=== PATIENT | male | born 1980 | race Caucasian/White ===

== ENCOUNTER 2017-10-17 14:06 | Emergency (ER) | payer SELFPAY ==
[2017-10-17 14:07] VITALS: BP 122/68; PULSE 62; RESP 18; TEMP 37; O2SAT 100; BMI 20.7
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
[2017-10-17] MEDS: Acetaminophen 500 MG Tablet 1000 MG PO (16:07)
[2017-10-17 16:08] VITALS: PULSE 72; RESP 16; O2SAT 98
== END 2017-10-17 16:09 | disposition home or self-care (01) ==
PROVIDERS: Emergency Provider Emergency Medicine
DX: S29.011A Strain of muscle and tendon of front wall of thorax, initial encounter (principal); S20.211A Contusion of right front wall of thorax, initial encounter; X58.XXXA Exposure to other specified factors, initial encounter; Y93.89 Activity, other specified; Y92.9 Unspecified place or not applicable; Z72.0 Tobacco use
CPT/HCPCS: 71046; 99283

== ENCOUNTER 2018-12-13 12:53 | Emergency (ER) | payer SELFPAY ==
[2018-12-13 12:56] VITALS: BP 169/107; PULSE 95; RESP 16; TEMP 36.8; O2SAT 97; BMI 19.1
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
[2018-12-13 13:37] LABS: Absolute Lymphocyte Count 3.78 X10^3/uL (0.83-4.51); Absolute Neutrophil Count 16.3 X10^3/uL (2.0-7.7); Basophil# 0.07 X10^3/uL; Basophil% 0.3 % (0-1); Eosinophil# 0.07 X10^3/uL; Eosinophils% 0.3 % (0-5); Hematocrit 42.6 % (40-54); Hemoglobin 14.1 g/dL (13.0-16.5); Lymphocyte # 3.78 X10^3/ul (4.0); Mean Corp Hgb Conc 33.1 g/dL (32-36); Mean Corpuscular Hgb 30.9 pg (27.0-32.0); Mean Corpuscular Volume 93.2 fL (80-94); Mean Platelet Vol. 10.2 fl (6.2-12.0); Monocyte# 1.85 X10^3/uL; Monocyte% 8.3 % (0-10); NRBC Flagged by Analyzer 0 % (0-5); Neutrophil # 16.29 X10^3/uL (2.7-7.7); Neutrophil % 73.6 % (47-70); POSITIVE DIFFERENTIAL YES; Platelet Count 314 K/mm3 (150-450); RBC Distribution Width CV 14.5 % (11.6-14.6); RBC Distribution Width SD 49.3 fl (35.1-43.9); Red Blood Count 4.57 M/mm3 (4.6-6.2); White Blood Count 22.2 K/mm3 (4.4-11.0)
[2018-12-13 13:39] LABS: Differential Indicated SCAN CRITERIA MET
[2018-12-13 13:49] LABS: Anion Gap 13 (5-15); BUN 14 mg/dL (7-18); BUN/Creat Ratio 11.4 RATIO (10-20); Calcium,Total 9.4 mg/dL (8.5-10.1); Chloride 107 mmol/L (98-107); Creatinine, Serum 1.23 mg/dL (0.70-1.30); EST Glomerular Filtration Rate 70 mL/min (>60); Est Glom Filt Rate - Afr Amer 84 mL/min (>60); Estimated Creatinine Clearance 60.08 ml/min; Glucose 117 mg/dL (74-106); Potassium 3.4 mmol/L (3.5-5.1); Sodium Level 140 mmol/L (136-145)
[2018-12-13 13:56] VITALS: BP 123/82; PULSE 118; RESP 16; O2SAT 95
[2018-12-13 14:11] LABS: Alcohol, Blood (Medical)-Serum < 3.0 mg/dL
--- NOTE | 2018-12-13 14:17 | CM.ED ---
SOCIAL WORK DISCUSSED CASE WITH DR. STEVENS. PATIENT IS SELF PAY. CRISIS TO EVALUATE ONCE PATIENT IS MEDICALLY CLEARED. Nicole SAMUEL, MANAGER PRODUCT DESIGN, LOAN ASSOCIATE.
[2018-12-13 15:03] VITALS: BP 142/75; PULSE 102; RESP 16; O2SAT 97
--- NOTE | 2018-12-13 15:10 | ED.RN ---
FRIEND IN TRIAGE LEFT CONTACT INFORMATION. LOTUS SCHULTZ [phone] JER HEDRICK [phone] ANTONINA MILLARD [phone]
--- NOTE | 2018-12-13 16:04 | ED.RN ---
MARIAH WITH CRISIS AWARE PT NEEDS TO BE SEEN
--- NOTE | 2018-12-13 16:38 | ED.RN ---
CLOTHONG NOT REMOVED AT THIS TIME.
[2018-12-13 16:52] LABS: Amphetamine Urine VISTA POSITIVE (<1000 ng/mL); Barbiturate Urine VISTA NEGATIVE (< 200 ng/mL); Benzodiazepine Urine VISTA NEGATIVE (< 200 ng/mL); Cocaine Urine VISTA NEGATIVE (< 300 ng/mL); Ecstacy Urine VISTA NEGATIVE (< 500 ng/mL); Methadone Urine VISTA NEGATIVE (< 300 ng/mL); PCP Urine VISTA NEGATIVE (< 25 ng/mL); THC Urine VISTA POSITIVE (< 50 ng/mL); Vista UDS pH Range 6
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
[2018-12-13 17:37] VITALS: BP 120/70; PULSE 79; RESP 16; O2SAT 98
[2018-12-13 19:21] VITALS: BP 113/74; PULSE 70; RESP 16; O2SAT 99
--- NOTE | 2018-12-13 19:46 | EKG12_ITS ---
Test Reason : MHC Blood Pressure : / mmHG Vent. Rate : 059 BPM Atrial Rate : 059 BPM P-R Int : 140 ms QRS Dur : 090 ms QT Int : 368 ms P-R-T Axes : 062 065 059 degrees QTc Int : 364 ms Sinus bradycardia Otherwise normal ECG Confirmed by MARC BARRIENTOS ([id number]), subeditor ILIA HEARD ([id number]) on 12/19/2018 8:48:03 AM Referred By: Confirmed By:MARC BARRIENTOS
[2018-12-13 20:06] LABS: AST(SGOT) 21 U/L (15-37); Alanine Aminotransfer ALT/SGPT 25 U/L (16-61); Albumin, Serum 4.1 g/dL (3.2-5.0); Alkaline Phosphatase 69 U/L (45-117); Bilirubin, Direct 0.15 mg/dL (0.00-0.30); Globulin 3.7 g/dL (2.2-4.2); Protein, Total 7.8 g/dL (6.4-8.2)
[2018-12-13 20:33] LABS: Bacteria 0 SEEN /hpf (None Seen); Mucous, Urine 0 SEEN /hpf (<or=2+); Red Blood Cells-Urine 0 SEEN /hpf (0-5); Squamous Epithelial Cells - UA 0 SEEN /hpf (0-5); White Blood Cells 0 SEEN /hpf (0-5)
[2018-12-13 20:41] LABS: Color, Urine Yellow (Yellow); Glucose, Dipstick Normal (Normal); Ketone-Dipstick 50 mg/dl (Negative); Leukocyte Esterase-Dipstick Negative /ul (Negative); Nitrite-Dipstick Negative (Negative); Occult Blood-Urine Negative /ul (Negative); Protein-Dipstick 30 mg/dl (Negative); Urine Bilirubin Dipstick Negative (Negative); Urine Clarity Cloudy (Clear); Urine Urobilinogen 1 mg/dl (Normal); Urine pH 6.5 (5.0 - 8.0)
[2018-12-13 20:48] LABS: Amorphous Sediment 3+
[2018-12-13 21:00] VITALS: BP 113/74; PULSE 68; RESP 16; O2SAT 99
--- NOTE | 2018-12-13 21:02 | ED.RN ---
FAXED REQUESTED LAB RESULTS, AND EKG TO [facility]
[2018-12-13 22:31] LABS: CPK Total, Creatine Kinase 238 U/L (39-308)
[2018-12-13 23:46] LABS: CPK Total, Creatine Kinase 1166 U/L (39-308)
--- NOTE | 2018-12-14 00:13 | ED.RN ---
AT 0000 THIS RN CAME OUT OF A ROOM AFTER CHECKING IN A PATIENT AND THIS PATIENT WAS NOT IN HIS ROOM. RN CHECKED BATHROOMS AND ALERTED SECURITY. SECURITY FOUND PT ON VIDEO CAMERA LEAVING ROOM AT 2352. EVENT DECORATOR AWARE. POLICE WILL BE NOTIFIED.
--- NOTE | 2018-12-14 00:17 | ED.RN ---
SPOKE WITH [facility] AND WILL FURTHER NOTIFY POLICE.
[2018-12-14 00:59] VITALS: BP 123/79; PULSE 78; RESP 16; O2SAT 99
[2018-12-14] MEDS: 0.9% Normal Saline 1,000 ML 1000 ML IV ×2 (01:07→02:10)
--- NOTE | 2018-12-14 01:09 | ED.RN ---
PT ESCORTED BACK TO ED BY THE [facility] POLICE. PT PICKED UP AT [facility]AL [facility]. VS OBTAINED, AND WITHIN NORMAL LIMITS PT UNDRESSED AND PLACED INTO A GOWN. IV INITIATED PER DR. HANNA. PT COOPERATIVE AT THIS TIME. PT EDUCATED THAT HE IS NOT ABLE TO LEAVE THE DEPT AND HE MUST STAY IN HIS ROOM.
[2018-12-14 03:02] VITALS: BP 110/78; PULSE 65; RESP 18; O2SAT 100
[2018-12-14 04:39] LABS: CPK Total, Creatine Kinase 1199 U/L (39-308)
--- NOTE | 2018-12-14 04:45 | HP.PCM_ITS ---
History of Present Illness Date of Admission: 12/14/18 Chief Complaint: Accidental OD, Hallucinations and Delusions The patient is a 38 year old M [] Past Medical History Allergies aspirin Adverse Reaction (Verified 10/17/17 14:08) Upset Stomach ibuprofen Adverse Reaction (Verified 10/17/17 14:08) Upset Stomach naproxen [From Naprosyn] Adverse Reaction (Verified 10/17/17 14:08) Upset Stomach Home Medications: Ambulatory Orders Medication Instructions Recorded Acetaminophen [Pain Relief 8Hr] 650 mg PO TID PRN #20 tablet.er 10/17/17 Smoking Status: Current every day smoker - Physical Exam Vitals/I&O's: Vital Signs Temp Pulse Resp BP Pulse Ox 98.3 F 65 18 110/78 100 12/13/18 12:56 12/14/18 03:02 12/14/18 03:02 12/14/18 03:02 12/14/18 03:02 Oxygen Delivery Method Room Air Weight: 115 lb Body Mass Index (BMI) 19.1 Intake and Output for Last 24 Hours 12/12/18 12/13/18 12/14/18 23:59 23:59 23:59 Intake Total 1999 Balance 1999 Laboratory Results 12/13/18 13:28: WBC 22.2 H, RBC 4.57 L, Hgb 14.1, Hct 42.6, MCV 93.2, MCH 30.9, MCHC 33.1, RDW Std Deviation 49.3 H, RDW Coeff of Codey 14.5, Plt Count 314, MPV 10.2, Immature Gran % (Auto) 0.500, Neut % (Auto) 73.6 H, Lymph % (Auto) 17.0 L, [place] % (Auto) 8.3, Eos % (Auto) 0.3, Baso % (Auto) 0.3, Absolute Neuts (auto) 16.3 H, Absolute Lymphs (auto) 3.78, Nucleated RBC % 0, Differential Comment COMMENT, Diff Path Review June12/13/18 13:28: Sodium 140, Potassium 3.4 L, Chloride 107, Carbon Dioxide 20.0 L , Anion Gap 13, BUN 14, Creatinine 1.23, Estim Creat Clear Calc 60.08, Est GFR (MDRD) Af Amer 84, Est GFR (MDRD) Non-Af 70, BUN/Creatinine Ratio 11.4, Glucose 117 H, Calcium 9.4 12/13/18 13:28: Ethyl Alcohol < 3.0 12/13/18 13:28: Total Bilirubin 0.60, Direct Bilirubin 0.15, AST 21, ALT 25, Alkaline Phosphatase 69, Total Protein 7.8, Albumin 4.1, Globulin 3.7 12/13/18 13:28: Total Creatine Kinase 238 12/13/18 15:35: Urine Opiates Screen NEGATIVE, Urine Methadone Screen NEGATIVE, Ur Barbiturates Screen NEGATIVE, Ur Phencyclidine Scrn NEGATIVE, Ur Amphetamines Screen POSITIVE H, U Methamphetamin-MDMA NEGATIVE, U Benzodiazepines Scrn NEGATIVE, Urine Cocaine Screen NEGATIVE, U Cannabinoids Screen POSITIVE H, Ur Drug Screen Comment 12/13/18 15:35: Urine Color Yellow, Urine Clarity Cloudy, Urine pH 6.5, Ur Specific [place] 1.020, Urine Protein 30 H, Urine Glucose (UA) Normal, Urine Ketones 50 H, Urine Occult Blood Negative, Urine Nitrite Negative, Urine Bilirubin Negative, Urine Urobilinogen 1 H, Ur Leukocyte Esterase Negative, Urine RBC 0 SEEN, Urine WBC 0 SEEN, Ur Squamous Epith Cells 0 SEEN, Amorphous Sediment 3+, Urine Bacteria 0 SEEN, Urine Mucus 0 SEEN 12/13/18 23:06: Total Creatine Kinase 1166 H 12/14/18 03:35: Total Creatine Kinase 1199 H Current Medications Sodium Chloride () 1,000 mls @ 1,000 mls/hr IV .Q1H MAGGIE Stop: 12/14/18 06:44
--- NOTE | 2018-12-14 05:08 | ED.RN ---
CALLED CRISIS AT THE REQUEST OF DR MCKEE
--- NOTE | 2018-12-14 05:16 | ED.DCSUM_ITS ---
- ER Visit Summary Date of Service: 12/14/18 Chief Complaint: [] History of Present Illness: The patient is a 38 M [] Physical Examination: [] Test Results: [] Emergency Department Course and Treatment: [] Treatment Plan: [] Disposition: [] Impression: [] This note was generated with [employer] software. It may contain incorrect words, spelling, and punctuation that were not noted in review of the chart prior to signing ED Disposition - Plan for ED Patient: Disposition: Home or Assisted Living Diagnosis: Drug-induced psychotic disorder with delusions Instructions: Drug Abuse Referrals: Counseling,Center [GROUP OF PHYSICIANS] -
[2018-12-14 05:21] VITALS: BP 120/78; PULSE 80; RESP 18; O2SAT 100
--- NOTE | 2018-12-14 05:22 | ED.RN ---
DR. MCKEE TO BEDSIDE FOR REEVALUATION. PT CONTINUES TO DENY SI/HI. TALKED TO CRISIS. PT TO BE DISCHARGED HOME.
[2018-12-14 11:14] LABS: Pathologist Review Reviewed
== END 2018-12-14 05:28 | disposition home or self-care (01) ==
PROVIDERS: Emergency Medicine; Emergency Provider Emergency Medicine
DX: F23 Brief psychotic disorder (principal); F12.90 Cannabis use, unspecified, uncomplicated; Z72.0 Tobacco use
CPT/HCPCS: 36415; 80048; 80076; 80307; 80320; 81001; 82550; 85025; 93005; 96360; 96361; 99285; J7030; P9612; A4216; G0480; J3486

== ENCOUNTER 2019-05-09 22:24 | Emergency (ER) | payer SELFPAY ==
[2019-05-09 22:25] VITALS: BP 137/87; PULSE 83; RESP 16; TEMP 37.4; O2SAT 98; BMI 21.2
--- NOTE | 2019-05-09 22:32 | ED.VIS.GEN ---
History of Present Illness Chief Complaint: Abscess Informant: Patient Onset: Days Context: Sudden Onset Timing: Continuous Quality: Painful red area Location: Left axilla Current Severity: Mild Maximum Severity: Moderate Worsened by: Movement of left upper extremity and palpation Relieved by: Nothing Associated Symptoms: No associated symptoms Narrative: Patient is a 39-year-old male with no similar past medical history presents with a left axillary abscess. He denies fever, chills night sweats. [place] history medic fever, heart murmur, SBE, IV drug use or being immune suppressed. He states he had prior abscess. It has been sometime since last abscess. He denies paresthesia, anesthesia motors of the left upper extremity. He denies cardiac or respiratory symptoms. Prior similar symptoms: Yes Recent Illness/Hospitalization: No - Past Medical History (1) No significant past medical history Status: Acute Past Medical History - Allergies and Home Meds Allergies/Adverse Reactions: Allergies aspirin Adverse Reaction (Verified 10/17/17 14:08) Upset Stomach ibuprofen Adverse Reaction (Verified 10/17/17 14:08) Upset Stomach naproxen [From Naprosyn] Adverse Reaction (Verified 10/17/17 14:08) Upset Stomach Primary Care Physician: Care Physician,No Primary [Primary Care Provider] - Prior records reviewed: Yes - Prior abscess Surgical History: noncontributory Lives: Alone Smoking Status: Current every day smoker Alcohol: Rare Drugs: None Review of Systems General: Denies: Chills, Fever, Malaise, Subjective, Sweats, Weight loss, - Cardiovascular: Denies: Chest pain Respiratory: Denies: Dyspnea Gastrointestinal: Denies: Nausea, Vomiting Musculoskeletal: Reports: Swelling, Extremity Pain. Denies: Myalgias, Arthralgias, Neck pain, Back pain Skin: Reports: Abscess. Denies: Rash, Abrasions, Wounds Neurological: Denies: Weakness, Parasthesia, Numbness Hematologic: Denies: Easy bruising, Easy bleeding Allergy: Denies: Uticaria, Swelling of the mouth Physical Exam Vital Signs/Narrative: Vital Signs Temp Pulse Resp BP Pulse Ox 05/09/19 22:25 99.4 F H 83 16 137/87 H 98 Inital Vital Signs reviewed: Yes General: Well nourished, Well developed, No Acute Distress Head: Normocephalic, Atraumatic Eyes: Perrl, EOMI. Negative for: Pale conjunctiva, Scleral icterus ENT: Moist mucous membranes, No rhinorrhea Neck: Supple, Nontender, No lymphadenopathy, No JVD Cardiovascular: Regular rate, Regular rhythm, No murmurs, Normal S1, Normal S2 Respiratory: No distress, CTA bilaterally, Chest nontender Extremities: No edema, Tenderness - Is over left axillary abscess. Skin: Normal color, No rash, No Trauma. Negative for: Cyanosis, Diaphoresis, Jaundice Neurological: Alert, Oriented x3, Cranial nerves II-XII grossly intact, Normal Strength, Normal Sensation Psychological: Normal affect, Normal Mood Diagnostic/Tx/Re-eval - Medical Decision Making A subcutaneous left axillary abscess. The area is red, slightly warm and there is fluctuance. There is no axillary lymphadenopathy. Patient was informed treatment is incision and drainage. He gave verbal consent. Written consent was obtained as well. Procedures Procedure(s): Patient consented for incision and drainage of subcutaneous left axillary abscess. Patient was explained risk benefits. Patient was prepped draped sterile manner. The area anesthetized with 1% lidocaine. A 2 cm incision was made using a 10 blade. Blunt dissection undertaken. There was minimal purulent drainage. The redness has resolved. Since this is a simple subcutaneous abscess with no evidence cellulitis antibiotics were not prescribed. ED Disposition - Plan for ED Patient: Disposition: Home or Assisted Living Diagnosis: Subcutaneous abscess Instructions: ABSCESS, Incision and Drainage Referrals: Care Physician,No Primary [Primary Care Provider] - Mayda Smith [NON-STAFF] - 2 Days for wound check
== END 2019-05-09 22:57 | disposition home or self-care (01) ==
LOC: ED 22:50
PROVIDERS: Emergency Provider Emergency Medicine
DX: L02.412 Cutaneous abscess of left axilla (principal); F17.200 Nicotine dependence, unspecified, uncomplicated
CPT/HCPCS: 10060; 99283

== ENCOUNTER 2021-08-30 03:34 | Emergency (ER) | payer MEDICAID, SELFPAY ==
[2021-08-30 03:34] VITALS: BP 151/83; PULSE 67; RESP 18; TEMP 35.8; O2SAT 99
--- NOTE | 2021-08-30 03:41 | EDS_ITS ---
HPI History of Present Illness Chief Complaint: Dental Detail of Chief Complaint: Dental pain x1 week Informant: patient Narrative Narrative: Patient presents with dental pain. Patient states that a week ago his tooth broke and now is worn down to the gumline. Initially did not hurt very much but started hurting more over the last 24 hours. He denies fever. He has not contacted a dentist and states he just got his medical card. Prior similar symptoms: No PFSH PFSH Medical History no medical history Home Medications amoxicillin 500 mg tablet 500 mg PO TID #30 tabs 08/30/21 [Rx Last Taken Unknown] hydrocodone-acetaminophen 5-325mg 5mg-325mg 1 tab PO Q4H PRN PRN Pain 2 days #10 TABLETS 08/30/21 [Rx Last Taken Unknown] Allergy/AdvReac Type Severity Reaction Status Date / Time aspirin AdvReac Upset Verified 08/30/21 03:37 Stomach ibuprofen AdvReac Upset Verified 08/30/21 03:37 Stomach naproxen [From Naprosyn] AdvReac Upset Verified 08/30/21 03:37 Stomach Social History Smoking Status: Current every day smoker tobacco type: cigarettes ROS ROS ED Review of Systems ROS Unobtainable: other Constitutional Constitutional ED: Reports lethargy; Denies chills, fever(s), sweats or weight loss Eyes Eyes: Denies blurry vision, change in vision or diplopia ENT ENT ED: Reports other Details: Dental pain ; Denies rhinorrhea or sore throat Cardiovascular Cardiovascular: Denies chest pain, orthopnea or racing heartbeat Respiratory/Chest Respiratory/Chest: Reports dyspnea and dyspnea on exertion; Denies cough, orthopnea or sputum Gastrointestinal Gastrointestinal: Denies abdominal pain, diarrhea, nausea or vomiting Genitourinary Genitourinary ED: Denies dysuria, hematuria or urinary frequency Musculoskeletal Musculoskeletal: Denies arthralgias, back pain, myalgias or neck pain Integumentary Denies abscess, Abrasions or rash Neurologic Neurologic: Denies headache(s) or weakness Psychiatric Psychiatric: Denies anxiety, depression or suicidal thoughts Endocrine Endocrinology: Denies polydipsia, polyphagia or polyuria Hematologic/Lymphatic Hematologic/Lymphatic: Denies easy bleeding, easy bruising or lymphadenopathy Allergic/Immunologic Allergic/Immunologic ED: Denies mouth swelling, tongue swelling or urticaria EXAM Physical Exam Const Vital Signs: 08/30/21 03:34 Temperature 96.4 F L Temperature Source Temporal Pulse Rate 67 Respiratory Rate 18 Blood Pressure 151/83 H Blood Pressure Mean 105 Pulse Ox 99 Oxygen Delivery Method Room Air Positive well nourished and well developed General Appearance ED: well developed and NAD HEENT Reports TM's clear and moist mucous membranes HEENT Narrative: Patient has very poor dentition. He does have a broken and carried tooth #20 that is tender to palpation. The tooth is worn down to the gumline. No gingival erythema or abscess noted. No facial erythema or cellulitis. normocephalic and atraumatic; Negative for trauma or tenderness Tympanic Membrane ED: Yes TM's clear Eyes PERRL and EOMs intact bilaterally General Eye ED: Negative for pale conjunctiva or scleral icterus Neck no lymphadenopathy, supple and no JVD General: Negative for tenderness Chest Wall inspection of chest normal and palpation of chest normal Chest: Negative for tenderness Resp normal respiratory effort and clear to auscultation bilaterally Effort and Inspection: Negative for respiratory distress or pain with movement Auscultation: Negative for rhonchi, wheezes or diminished lung sounds Cardio regular rate, regular rhythm, S1 normal heart sound, S2 normal heart sound and no murmurs Peripheral Pulses: pulses 2+ throughout GI normal to inspection, nondistended, normoactive bowel sounds, soft to palpation, non-tender, non-distended and no masses Back/Spine no CVA tenderness and no thoracic nor lumbar tenderness Extremity normal to inspection General Extremety ED: Negative for edema General Extremity: Negative for edema Neuro oriented x3, CN's II-XII intact bilaterally, no sensory deficits noted and gait normal Sensorium / Orientation: awake, alert, oriented to person, oriented to place and oriented to time Motor Exam: strength 5/5 throughout and strength abnormal Psych mental status grossly normal Skin no rashes or lesions noted and no wounds MDM MDM MDM Narrative Medical decision making narrative: Patient was started on amoxicillin and given Henrietta. He is given a prescription for amoxicillin and Henrietta given referral to dentist for follow-up. Discharge Plan Triage Chief Complaint: Dental ED Provider: Kathi Calixto Dx/Rx/DC Orders Clinical Impression: Pain, dental Instructions: ED Dental Pain, ED Dental Cavity Prescriptions: New hydrocodone-acetaminophen [hydrocodone-acetaminophen] 5-325 mg tablet 1 tab PO Q4H PRN PRN (Reason: Pain) 2 Days Qty: 10 0RF amoxicillin 500 mg tablet 500 mg PO TID Qty: 30 0RF Primary Care Provider: Care Physician,No Primary Referrals: Care Physician,No Primary [Primary Care Provider] - Activity Restrictions/Additional Instructions: See a dentist Disposition Disposition: Home, Self Care
[2021-08-30] MEDS: AMOXICILLIN 500 MG CAPSULE PO (03:51)
[2021-08-30] MEDS: HYDROcodone Bitartrate/Apap 5/325 Tablet PO (03:52)
== END 2021-08-30 04:02 | disposition home or self-care (01) ==
PROVIDERS: Emergency Provider Emergency Medicine; Visit Provider Emergency Medicine
DX: K08.89 Other specified disorders of teeth and supporting structures (principal); F17.210 Nicotine dependence, cigarettes, uncomplicated
CPT/HCPCS: 99283

== ENCOUNTER 2021-10-17 06:11 | Emergency (ER) | payer MEDICAID, SELFPAY ==
[2021-10-17 06:13] VITALS: BP 138/80; PULSE 72; RESP 18; TEMP 36.1; O2SAT 98; BMI 20.9
--- NOTE | 2021-10-17 06:31 | ED.VIS.DENTA ---
HPI History of Present Illness Chief Complaint: Dental Informant: patient Onset/Context/Timing Onset: Days (2) Context: Gradual Onset Timing: Continuous Quality: Throbbing, aching, stabbing Location: Left lower molars Worsened by: Nothing Relieved by: - (Nothing) Associated Symptoms Assocated Symptom - Dental: jaw swelling; Negative for fever, face swelling, cold sensitivity or hot sensitivity Narrative Narrative: Patient presents with left lower dental pain that has been getting worse over the past 2 days. Patient describes the pain as throbbing and aching. Patient states nothing makes it worse and nothing makes it better. Patient admits to some swelling around the tooth. Patient denies any fevers or chills. Patient denies any hot or cold sensitivity. Patient does not have a dentist. Patient denies any difficulty breathing or difficulty swallowing. PFSH PFSH Medical History no medical history no medical history Home Medications penicillin V potassium 500 mg tablet 500 mg PO 4X/DAY #40 tabs 10/17/21 [Rx Last Taken Unknown] Allergy/AdvReac Type Severity Reaction Status Date / Time aspirin AdvReac Upset Verified 10/17/21 06:12 Stomach ibuprofen AdvReac Upset Verified 10/17/21 06:12 Stomach naproxen [From Naprosyn] AdvReac Upset Verified 10/17/21 06:12 Stomach Surgical History no surgical history no surgical history Social History Smoking Status: Current every day smoker tobacco type: cigarettes ROS ROS ED Constitutional Constitutional ED: Denies chills or fever(s) Eyes Eyes: Denies blurry vision or change in vision ENT ENT ED: Reports ear pain left; Denies rhinorrhea or sore throat Cardiovascular Cardiovascular: Denies chest pain or palpitations Respiratory/Chest Respiratory/Chest: Denies cough or dyspnea Gastrointestinal Gastrointestinal: Denies nausea or vomiting Genitourinary Genitourinary ED: Denies dysuria or hematuria Musculoskeletal Musculoskeletal: Denies back pain or neck pain Integumentary Denies abscess or rash Neurologic Neurologic: Reports headache(s); Denies weakness Allergic/Immunologic Allergic/Immunologic ED: Denies mouth swelling or urticaria EXAM Physical Exam Const Vital Signs: 10/17/21 06:13 Temperature 97 F L Temperature Source Temporal Pulse Rate 72 Respiratory Rate 18 Blood Pressure 138/80 H Blood Pressure Mean 99 Pulse Ox 98 Oxygen Delivery Method Room Air Positive well nourished and well developed General Appearance ED: well developed and NAD HEENT HEENT Narrative: There are multiple dental caries. There is a large dental carry over the left lower first molar. There is some gingival edema around this tooth. There is no fluctuance. There is no sublingual edema or induration. There is no evidence of Alfredo's angina. Oral mucosa is pink and moist. Oropharynx is clear. Airway is patent. Mouth ED: Yes oral and palatal mucosa normal, Yes lips normal and Yes tongue normal Mouth: oral and palatal mucosa normal, lips normal and tongue normal Teeth and Gingiva: caries Throat: posterior oropharynx normal Neck supple and no JVD General: normal visual inspection; Negative for anterior neck swelling, tenderness or submandibular swelling Resp clear to auscultation bilaterally Cardio regular rate and regular rhythm Neuro oriented x3, CN's II-XII intact bilaterally, moves all extremities, no focal motor deficits and no sensory deficits noted Sensorium / Orientation: alert Motor Exam: strength 5/5 throughout Psych mental status grossly normal Skin no rashes or lesions noted MDM MDM MDM Narrative Medical decision making narrative: Patient was given a dose of Pen-Vee K here. Patient was given a prescription for Pen-Vee K. Patient was given a dental referral list. Patient was instructed to follow-up with a dentist in 7 to 10 days. Patient was instructed to take Tylenol or ibuprofen as needed for pain. Patient understood and was agreeable with the plan. All questions were answered. Discharge Plan Triage Chief Complaint: Dental ED Provider: Dima Ray Dx/Rx/DC Orders Clinical Impression: Infected dental caries Instructions: ED Dental Pain, ED Dental Cavity Prescriptions: New penicillin V potassium 500 mg tablet 500 mg PO 4X/DAY Qty: 40 0RF Primary Care Provider: Care Physician,No Primary Referrals: Mayda Smith [Non-Staff] - 5-7 Days Care Physician,No Primary [Primary Care Provider] - Disposition Disposition: Home, Self Care
[2021-10-17] MEDS: Penicillin Vk 250 MG Tablet 500 MG PO (06:42)
== END 2021-10-17 06:44 | disposition home or self-care (01) ==
PROVIDERS: Emergency Provider Emergency Medicine; Visit Provider Emergency Medicine
DX: K02.9 Dental caries, unspecified (principal); F17.210 Nicotine dependence, cigarettes, uncomplicated
CPT/HCPCS: 99283

== ENCOUNTER 2022-08-21 17:56 | Emergency (ER) | payer MEDICAID, SELFPAY ==
[2022-08-21 17:57] VITALS: BP 134/74; PULSE 74; RESP 18; TEMP 36.2; O2SAT 98; BMI 19.1
--- NOTE | 2022-08-21 18:06 | ED.VIS.DENTA ---
HPI History of Present Illness Chief Complaint: Dental Informant: patient Onset/Context/Timing Onset: Weeks Context: Gradual Onset Current Severity: Moderate Maximum Severity: Moderate Associated Symptoms Assocated Symptom - Dental: face swelling Narrative Narrative: Patient presents with left-sided facial swelling. He states he first noted symptoms about 3 weeks ago. He thought he might have a an ingrown hair or an abscess. He was trying to squeeze the area but it only made it worse. PFSH PFSH Medical History no medical history no medical history Home Medications penicillin V potassium 500 mg tablet 500 mg PO 4X/DAY #40 tabs 10/17/21 [Rx Last Taken Unknown] penicillin V potassium 250 mg tablet 500 mg (2 x 250 mg) PO 4X/DAY #40 tabs 08/21/22 [Rx Last Taken Unknown] Allergy/AdvReac Type Severity Reaction Status Date / Time aspirin AdvReac Upset Verified 10/17/21 06:12 Stomach ibuprofen AdvReac Upset Verified 10/17/21 06:12 Stomach naproxen [From Naprosyn] AdvReac Upset Verified 10/17/21 06:12 Stomach Surgical History no surgical history Social History Smoking Status: Current every day smoker tobacco type: cigarettes ROS ROS ED Constitutional Constitutional ED: Denies chills or fever(s) Eyes Eyes: Denies discharge from eye(s) ENT ENT ED: Denies discharge from eye(s), rhinorrhea or sore throat Cardiovascular Cardiovascular: Denies chest pain Respiratory/Chest Respiratory/Chest: Denies cough or dyspnea Gastrointestinal Gastrointestinal: Denies abdominal pain, nausea or vomiting Musculoskeletal Musculoskeletal: Denies extremity pain Integumentary Denies Abrasions or rash Neurologic Neurologic: Denies headache(s) or weakness Allergic/Immunologic Allergic/Immunologic ED: Denies lip swelling or urticaria EXAM Physical Exam Const Vital Signs: 08/21/22 17:57 Temperature 97.2 F L Temperature Source Temporal Pulse Rate 74 Respiratory Rate 18 Blood Pressure 134/74 H Blood Pressure Mean 94 Pulse Ox 98 Oxygen Delivery Method Room Air Positive well nourished and well developed General Appearance ED: well developed HEENT HEENT Narrative: Edema noted along the left mandible. No erythema or excessive warmth. Palpable abscess measuring approximately 1 cm in diameter feels to be closer to the intraoral surface. On intraoral examination patient's premolars and molars on the left have been previously extracted or broken off. The first premolar site does have an opening in the gum. There does appear to be fullness between this area and the palpable abscess. Posterior pharynx examination is unremarkable. No trismus. Eyes PERRL and EOMs intact bilaterally Neck no lymphadenopathy Chest Wall inspection of chest normal and palpation of chest normal Resp normal respiratory effort and clear to auscultation bilaterally Cardio regular rate and regular rhythm Extremity normal to inspection Neuro oriented x3 and no sensory deficits noted Motor Exam: strength 5/5 throughout Psych mental status grossly normal Skin no rashes or lesions noted MDM MDM MDM Narrative Medical decision making narrative: Patient's exam findings are most consistent with dental abscess. He will be given a dental referral sheet started on [facility]. He reports allergies to aspirin, ibuprofen, and Naprosyn giving him gastritis. He will be treated with Tylenol. Return instructions provided. Discharge Plan Triage Chief Complaint: Dental ED Provider: Evelyn Wiley Dx/Rx/DC Orders Clinical Impression: Dental abscess Instructions: ED Dental Abscess Prescriptions: New penicillin V potassium 250 mg tablet 500 mg PO 4X/DAY Qty: 40 0RF No Action penicillin V potassium 500 mg tablet 500 mg PO 4X/DAY Qty: 40 0RF Primary Care Provider: Care Physician,No Primary Referrals: Care Physician,No Primary [Primary Care Provider] - Activity Restrictions/Additional Instructions: Dental list provided. Please follow-up with a dentist within the next couple weeks. Disposition Disposition: Home, Self Care
[2022-08-21] MEDS: Penicillin Vk 250 MG Tablet 500 MG PO (18:11)
[2022-08-21] MEDS: Acetaminophen 500 MG Tablet 1000 MG PO (18:11)
[2022-08-21 18:16] VITALS: RESP 16
== END 2022-08-21 18:16 | disposition home or self-care (01) ==
PROVIDERS: Emergency Provider Emergency Medicine; Visit Provider Emergency Medicine
DX: K04.7 Periapical abscess without sinus (principal); F17.210 Nicotine dependence, cigarettes, uncomplicated
CPT/HCPCS: 99283

== ENCOUNTER 2022-08-26 18:22 | Emergency (ER) | payer MEDICAID, SELFPAY ==
[2022-08-26 18:23] VITALS: BP 123/56; PULSE 77; RESP 18; TEMP 36.1; O2SAT 99; BMI 19.1
--- NOTE | 2022-08-26 18:57 | ED.VIS.DENTA ---
HPI History of Present Illness Chief Complaint: Dental PFSH PFSH Home Medications penicillin V potassium 500 mg tablet 500 mg PO 4X/DAY #40 tabs 10/17/21 [Rx Last Taken Unknown] penicillin V potassium 250 mg tablet 500 mg (2 x 250 mg) PO 4X/DAY #40 tabs 08/21/22 [Rx Last Taken Unknown] Allergy/AdvReac Type Severity Reaction Status Date / Time aspirin AdvReac Upset Verified 08/26/22 18:24 Stomach ibuprofen AdvReac Upset Verified 08/26/22 18:24 Stomach naproxen [From Naprosyn] AdvReac Upset Verified 08/26/22 18:24 Stomach Surgical History no surgical history Social History Smoking Status: Current every day smoker tobacco type: cigarettes EXAM Physical Exam Const Vital Signs: 08/26/22 18:23 Temperature 97 F L Temperature Source Temporal Pulse Rate 77 Respiratory Rate 18 Blood Pressure 123/56 H Blood Pressure Mean 78 Pulse Ox 99 Oxygen Delivery Method Room Air MDM MDM MDM Narrative Medical decision making narrative: HISTORY OF PRESENT ILLNESS: 42-year-old male here for dental pain. States he is currently on penicillin. He further states that left sided lower jaw swelling. He is concerned he may have an abscess. Denies any fever or vomiting. Denies any submandibular edema neck stiffness or difficulty swallowing. Denies any drooling or difficulty opening his mouth. REVIEW OF SYSTEMS: Pertinent positives: Pertinent negatives: PHYSICAL EXAM: Nursing triage notes reviewed, Vital signs reviewed Constitutional: please see mdm HENT: MMM, no evidence of dental abscess, no submandibular edema or induration, no tonsillar exudates or erythema, uvula midline, patient was controlling secretions, no drooling, no trimus, no dysphonia Eyes: Pupils equal round and reactive to light, Extraocular muscles intact Neck: No stridor, no JVD, full neck ROM Lungs: Clear to auscultation, No wheezing or rales. No increased work of breathing, no conversational dyspnea, no accessory muscle use, no nasal flaring. No respiratory distress noted Heart: Regular rate and rhythm, No murmurs, No rubs and No gallops, 2+ distal pulses (radial, femoral, posterior tibial) in all extremities MEDICAL DECISION MAKING: Chief Complaint: Dental pain External records reviewed: Seen on 08/21/2022 noted at time of left-sided facial swelling. Diagnosed with dental abscess at that time. MDM Narrative: The patient was hemodynamically stable, afebrile, nontoxic-appearing. I considered the following differential diagnosis: Dental abscess, ANUG, Ludewig's angina, RPA, CLIENT SUPPORT COORDINATOR, dental caries, gingivitis Exam consistent with dental abscess. 1% lidocaine was injected abscess was drained with a 22-gauge needle with approximately 1 cc of yellow purulent drainage expectorated. Patient was given Augmentin for further antimicrobial effect. He was given instructions to take Tylenol and ibuprofen for pain and fever control. He was instructed to follow-up with dentistry at the next available appointment. Procedure: Incision and Drainage The procedure was performed by myself. Location: Left lower jaw Risks and benefits: Risks, benefits, and alternatives were discussed. Questions were sought and answered, and verbal consent provided for the procedure. Anesthesia: 1% lidocaine Procedure Description: 22-gauge needle was inserted into the area of fluctuance with return of purulent fluid. Patient tolerated the procedure well. The patient tolerated the procedure well without complications. Shared decision making: I will have a discussion with the patient and or visitors regarding risk/benefits of further testing or admission. They will be made aware of of the risk/benefits inherent in this decision they will be given the opportunity to voice understanding. Consults: None Discharge Plan Triage Chief Complaint: Dental ED Provider: Lane Mora Dx/Rx/DC Orders Prescriptions: No Action penicillin V potassium 500 mg tablet 500 mg PO 4X/DAY Qty: 40 0RF penicillin V potassium 250 mg tablet 500 mg PO 4X/DAY Qty: 40 0RF Primary Care Provider: Care Physician,No Primary Referrals: Care Physician,No Primary [Primary Care Provider] -
[2022-08-26] MEDS: Amox/Clavulanate 875 MG Tablet PO (19:41)
[2022-08-26] MEDS: Lidocaine 1% (20 ml mdv) 20 ML Vial 5 ML INFILT (19:41)
== END 2022-08-26 20:00 | disposition home or self-care (01) ==
PROVIDERS: Emergency Provider Emergency Medicine; Visit Provider Emergency Medicine
DX: K04.7 Periapical abscess without sinus (principal); F17.210 Nicotine dependence, cigarettes, uncomplicated
CPT/HCPCS: 41800; 64999; 99283

== ENCOUNTER 2023-07-26 07:47 | Emergency (ER) | payer MEDICAID, SELFPAY ==
[2023-07-26 07:48] VITALS: BP 141/95; PULSE 64; RESP 18; TEMP 36.9; O2SAT 99; BMI 18.4
[2023-07-26 07:52] VITALS: BP 144/78; PULSE 88; RESP 18; TEMP 36.6; O2SAT 98
--- NOTE | 2023-07-26 08:03 | EDS_ITS ---
HPI History of Present Illness Chief Complaint: Dental PFSH PFSH Home Medications ?Medication ?Instructions ?Recorded ?Last Taken ?Type penicillin V potassium 500 mg 500 mg PO 4X/DAY #40 tabs 10/17/21 Unknown Rx tablet penicillin V potassium 250 mg 500 mg (2 x 250 mg) PO 4X/DAY #40 08/21/22 Unknown Rx tablet tabs amoxicillin 875 mg-potassium 1 tab PO BID #14 tabs 08/26/22 Unknown Rx clavulanate 125 mg tablet amoxicillin 875 mg-potassium 1 tab PO BID 7 days #14 tabs 07/26/23 Unknown Rx clavulanate 125 mg tablet Allergy/AdvReac Type Severity Reaction Status Date / Time aspirin AdvReac Upset Verified 07/26/23 07:48 Stomach ibuprofen AdvReac Upset Verified 07/26/23 07:48 Stomach naproxen (From Naprosyn) AdvReac Upset Verified 07/26/23 07:48 Stomach Surgical History no surgical history Social History Smoking Status: Current every day smoker tobacco type: cigarettes EXAM Physical Exam Const Vital Signs: 07/26/23 07:48 07/26/23 07:52 07/26/23 07:52 Temperature 98.4 F 97.8 F Temperature Source Temporal Oral Pulse Rate 64 88 88 Respiratory Rate 18 18 18 Blood Pressure 141/95 H 144/78 H 144/78 H Blood Pressure Mean 110 100 100 Pulse Ox 99 98 98 Oxygen Delivery Method Room Air Room Air Room Air [facility] MDM Narrative Medical decision making narrative: HISTORY OF PRESENT ILLNESS: 43-year-old male presents with left-sided face swelling. Was concerned about a dental infection. Notes left upper jaw swelling. REVIEW OF SYSTEMS: Pertinent positives: Swelling, pain left upper jaw Pertinent negatives: Drooling, difficulty controlling secretions PHYSICAL EXAM: Nursing triage notes reviewed, Vital signs reviewed Constitutional: please see mdm HENT: MMM, swelling over the left maxillary sinus, noted evidence of fluctuance and induration to left upper jaw near the incisor. No submandibular edema or induration, no tonsillar exudates or erythema, uvula midline, patient was controlling secretions, no drooling, no trimus, no dysphonia Eyes: Pupils equal round and reactive to light, Extraocular muscles intact Neck: No stridor, no JVD, full neck ROM Lungs: Clear to auscultation, No wheezing or rales. No increased work of breathing, no conversational dyspnea, no accessory muscle use, no nasal flaring. No respiratory distress noted Heart: Regular rate and rhythm, No murmurs, No rubs and No gallops, 2+ distal pulses (radial, femoral, posterior tibial) in all extremities MEDICAL DECISION MAKING: Chief Complaint: Dental pain External records reviewed: No recent imaging Factors affecting care: None Social determinants of health: None History obtained from others: [None Consults: None none MDM Narrative: The patient was hemodynamically stable, afebrile, nontoxic-appearing. Exam consistent with likely dental abscess No clinical exam evidence of ANUG, Alfredo angina, RPA, FRUIT RAISER I considered the following differential diagnosis: Dental abscess, ANUG, Ludewig's angina, RPA, FRUIT RAISER, dental caries, gingivitis Injected small amount of lidocaine in the area of greatest fluctuance, placed an 18-gauge needle and attempt to drain obvious abscess. Got 3cc of purulent material. Gave Augmentin and dental follow-up. Strict return precautions discussed. Shared decision making: I will have a discussion with the patient and or visitors regarding risk/benefits of further testing or admission. They will be made aware of of the risk/benefits inherent in this decision they will be given the opportunity to voice understanding. Impression: 1. Dental abscess 2. Poor dentition 3. Dental caries Disposition: Discharge home This note was generated with [employer] dictation software. It may contain incorrect words, spelling, and punctuation that were not noted in review of the chart prior to signing. Discharge Plan Triage Chief Complaint: Dental ED Provider: Lane Mora Dx/Rx/DC Orders Instructions: Dental Abscess Prescriptions: New amoxicillin-pot clavulanate 875-125 mg tablet 1 tab PO BID 7 Days Qty: 14 0RF No Action penicillin V potassium 500 mg tablet 500 mg PO 4X/DAY Qty: 40 0RF penicillin V potassium 250 mg tablet 500 mg PO 4X/DAY Qty: 40 0RF amoxicillin-pot clavulanate 875-125 mg tablet 1 tab PO BID Qty: 14 0RF Stand Alone Forms: ED Work / School Excuse Primary Care Provider: Care Physician,No Primary Referrals: Nael Galvan MD [Non-Staff] - Activity Restrictions/Additional Instructions: Thank you for trusting us with your care today! Please take Tylenol (2 pills, 650 mg), ibuprofen (2 pills, 400 mg) every 6 hours as needed for pain and fever control. Please take antibiotics as prescribed. Please return to the emergency department if your symptoms change or worsen. Please follow with your primary care physician for further outpatient evaluation and management. Print Language: Turkmen Disposition Disposition: Home, Self Care Discharge Date/Time: 07/26/23 09:15
== END 2023-07-26 09:15 | disposition home or self-care (01) ==
PROVIDERS: Emergency Provider Emergency Medicine; Visit Provider Emergency Medicine
DX: K04.7 Periapical abscess without sinus (principal); F17.210 Nicotine dependence, cigarettes, uncomplicated; K02.9 Dental caries, unspecified
CPT/HCPCS: 41800; 99282

== ENCOUNTER 2024-08-11 23:50 | Emergency (ER) | payer SELFPAY ==
[2024-08-11 23:51] VITALS: BP 127/86; PULSE 74; RESP 16; TEMP 36.9; O2SAT 100; BMI 17.0
--- NOTE | 2024-08-12 00:02 | EX.ED.DYSGE1 ---
HPI History of Present Illness Chief Complaint: Dental PFSH PFSH Medical History no medical history Home Medications ?Medication ?Instructions ?Recorded ?Last Taken ?Type penicillin V potassium 500 mg 500 mg PO 4X/DAY #40 tabs 10/17/21 Unknown Rx tablet penicillin V potassium 250 mg 500 mg (2 x 250 mg) PO 4X/DAY #40 08/21/22 Unknown Rx tablet tabs amoxicillin 875 mg-potassium 1 tab PO BID #14 tabs 08/26/22 Unknown Rx clavulanate 125 mg tablet amoxicillin 875 mg-potassium 1 tab PO BID 7 days #14 tabs 07/26/23 Unknown Rx clavulanate 125 mg tablet Allergy/AdvReac Type Severity Reaction Status Date / Time aspirin AdvReac Upset Verified 08/11/24 23:51 Stomach ibuprofen AdvReac Upset Verified 08/11/24 23:51 Stomach naproxen (From Naprosyn) AdvReac Upset Verified 08/11/24 23:51 Stomach Family History no significant family his Surgical History no surgical history Social History Smoking Status: Current every day smoker tobacco type: cigarettes EXAM Physical Exam Const Vital Signs: 08/11/24 23:51 Temperature 98.5 F Temperature Source Oral Pulse Rate 74 Respiratory Rate 16 Blood Pressure 127/86 H Blood Pressure Mean 99 Pulse Ox 100 Oxygen Delivery Method Room Air [facility] MDM Narrative Medical decision making narrative: HISTORY OF PRESENT ILLNESS: Chief complaint: Tooth 44-year-old man here with toothache. Notes pain in the left for 2 days. No fevers or vomiting noted. No sore throat noted REVIEW OF SYSTEMS: Pertinent positives: Tooth ache Pertinent negatives: Sore throat, difficulty PHYSICAL EXAM: Nursing triage notes reviewed, Vital signs reviewed Constitutional: please see mdm HENT: MMM, poor dentition, eroded left tooth #9. No palpable abscess noted. No posterior oropharyngeal swelling. Uvula midline. No pooling of secretions. Eyes: Pupils equal round and reactive to light, Extraocular muscles intact Neck: No stridor, no JVD, full neck ROM, no stiffness noted, supple Lungs: Clear to auscultation, No wheezing or rales. No increased work of breathing, no conversational dyspnea, no accessory muscle use, no nasal flaring. No respiratory distress noted Heart: Regular rate and rhythm, No murmurs, No rubs and No gallops, 2+ distal pulses (radial, femoral, posterior tibial) in all extremities MEDICAL DECISION MAKING: Chief Complaint: please see HPI History obtained from others: Significant other Consults: none MDM Narrative: The patient was initially hemodynamically stable, afebrile and nontoxic-appearing I considered the following differential diagnosis: Tooth decay, dental abscess Exam without dental abscess. Will give prophylactic antibiotics and dental resources. Strict return precautions were discussed The patient and/or family, caregivers express understanding. The patient and/or family, caregivers agrees with the plan. Shared decision making: I will have a discussion with the patient and or visitors regarding risk/benefits of further testing or admission. They will be made aware of of the risk/benefits inherent in this decision they will be given the opportunity to voice understanding. Total critical care time today provided was at least 0 minutes. This excludes separately billable procedures. Critical care time (if documented) is secondary to the patient having high probability of clinically significant/life threatening deterioration in the patient's condition which required my urgent intervention. Impression: 1. Poor dentition 2. Acute dental pain Dispo: Discharge home This note was generated with [employer] dictation software. It may contain incorrect words, spelling, and punctuation that were not noted in review of the chart prior to signing. Discharge Plan Triage Chief Complaint: Dental ED Provider: Lane Mora Dx/Rx/DC Orders Prescriptions: No Action penicillin V potassium 500 mg tablet 500 mg PO 4X/DAY Qty: 40 0RF penicillin V potassium 250 mg tablet 500 mg PO 4X/DAY Qty: 40 0RF amoxicillin-pot clavulanate 875-125 mg tablet 1 tab PO BID Qty: 14 0RF amoxicillin-pot clavulanate 875-125 mg tablet 1 tab PO BID 7 Days Qty: 14 0RF Primary Care Provider: Care Physician,No Primary Referrals: Care Physician,No Primary [Primary Care Provider] - Print Language: Tamazight
--- OUTSIDE RECORDS SUMMARY | 2024-08-12 00:28 | XMS RPT_ITS | CCD ---
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 Name Role Phone Unavailable Primary Care Provider Unavailabl e KILEY KINGSLEY Admitting Unavailable KILEY KINGSLEY Attending Unavailable PHYSICIAN, NONE Primary Care Physician Unavailab SARA Hughes MD Attending Unavailable PHYSICIAN, NONE Primary Care Unavailable Care Physician, No Primary Primary Care Unava ilable Evelyn Wiley Attending Unavailable Lane Mora Attending Unavailable Care Physician, No Primary Primary Care Unava ilable Care Physician, No Primary Primary Care Unava ilable Lane Mora Attending Unavailable Allergies Allergy Classification Reported Allergen(s) Allergy Type Date of Onset Reaction(s) Facility (2 sources) Aluminum aspirin Drug Allergy 0 Nausea And Vomiting [place], [place] (2 sources) Codeine Drug Allergy 0 Nausea And Vomiting [place], [place] (5 sources) Aspirin; Translations: [aspirin] Drug Allergy 2 Upset Stomach [facility] (4 sources) Ibuprofen Drug Allergy 2 Upset Stomach [facility] (4 sources) Naproxen Drug Allergy 2 Upset Stomach [facility] (1 source) Aspirin Drug Allergy 4 [facility] Repository (1 source) Ibuprofen Drug Allergy 4 [facility] Repository (1 source) Naproxen Drug Allergy 4 [facility] Repository Medications Current Medications Medication Drug Class(es) Dates Sig (Normalized) Sig (Original) acetaminophen 325 mg / HYDROcodone bitartrate 5 mg oral tablet (3 sources) Opioid Agonist Start: 08-30-2021 take 1 tablet by mouth every four hours as needed Hydrocodone-Aceta minophen Active 1 TABLET PO EVERY 4 HOURS NEEDED 10 2 August 30 2022 Start: 09-29-2015 End: 06-09-2023 take 1 tablet by mouth every six hours as needed for pain [place] 325- 5 mg oral tablet Dose = 1 tab(s), Oral, q6h, PRN for pain, X 3 day(s), # 12 tab(s), 0 Refill(s), Pharmacy: [id number], Dental infection, 50 Start Date: 06/06/23 Stop Date: 06/09/23 Status: Ordered amoxicillin 500 mg oral tablet (1 source) Penicillin-class Antibacterial Start: 08-30-2021 take 500 mg by mouth three times daily Amoxicillin Active 500 MG PO THREE TIMES A DAY August 30, 2021 12:00am amoxicillin 875 mg / clavulanate 125 mg oral tablet (2 sources) Penicillin-class Antibacterial Start: 06-06-2023 End: 06-20-2023 take 1 tablet by mouth every twelve hours amoxicillin-clavu lanate 875 mg-125 mg oral tablet 1 tab(s), Oral, q12h, X 14 day(s), # 28 tab(s), 0 Refill(s), 06/20/23 11:14:00 PM EDT, Pharmacy: [facility], 50 Start Date: 06/06/23 Stop Date: 06/20/23 Status: Ordered Start: 08-26-2022 take 1 tablet by toña th twice daily Amoxicillin-Pot Clavulanate Active 1 TABLET PO TWICE A DAY August 26, 2022 12:00am clindamycin 300 mg oral capsule (2 sources) Lincosamide Antibacterial Start: 10-11-2019 End: 10-18-2019 take 1 capsule by mouth twice daily clindamycin (CLEOCIN) 300 MG capsule Take 1 capsule by mouth 2 times daily for 7 days 14 capsule 0 10/11/2019 10/18/2019 Active Start: 10-11-2019 End: 10-11-2019 clindamycin (CLEOCIN) capsul e 300 mg Pepcid (1 source) Histamine-2 Receptor Antagonist Start: 09-29-2015 Pepcid 0 Refill(s) Start Date: 09/29/15 Status: Ordered ibuprofen 600 mg oral tablet (2 sources) Nonsteroidal Anti-inflammatory Drug Start: 06-07-2023 End: 06-17-2023 ibuprofen 600 mg oral tablet Dose : 600 mg = 1 tab(s), Oral, q6h, PRN for swelling, Take with food or milk., X 10 day(s), # 40 tab(s), 0 Refill(s), 06/17/23 12:02:00 AM EDT, Pharmacy: [id number] Start Date: 06/07/23 Stop Date: 06/17/23 Status: Ordered Start: 10-11-2019 End: 10-11-2019 ibuprofen (ADVIL;MOTRIN) tab let 800 mg OLANZapine 20 mg oral tablet (1 source) Atypical Antipsychotic Start: 12-13-2019 End: 01-12-2020 take 1 tablet by mouth once daily OLANZapine (ZYPREXA) 20 MG tablet Take 1 tablet by mouth nightly 30 tablet 0 12/13/2019 01/12/2020 Active penicillin v potassium 250 mg oral tablet (5 sources) Start: 08-21-2022 take 500 mg by mouth four times daily Penicillin V Potassium Active 500 MG PO 4 TIMES DAILY 40 August 21, 2022 12:00am Start: 10-17-2021 take 500 mg by mouth four times daily Penicillin V Potassium Active 500 MG PO 4 TIMES DAILY 40 October 17, 2021 12:00am divalproex sodium 250 mg delayed release oral tablet (1 source) Mood Stabilizer, Anti-epileptic Agent Start: 12-13-2019 End: 01-12-2020 take 1 tablet by mouth every twelve hours divalproex (DEPAKOTE) [address] tablet Take 1 tablet by mouth every 12 hours 90 tablet 3 12/13/2019 01/12/2020 Active Completed/Discontinued Medications Medication Drug Class(es) Dates Sig (Normalized) Sig (Original) naproxen 500 mg oral tablet (2 sources) Nonsteroidal Anti-inflammatory Drug Start: 10-11-2019 End: 12-13-2019 take 1 tablet by mouth twice daily naproxen (NAPROSYN) 500 MG tablet Take 1 tablet by mouth 2 times daily for 7 days 14 tablet 0 10/11/2019 12/13/2019 Discontinued (Stop Taking at Discharge) Problems Active Problems Problem Classification Problem Date Documented Date Episodic/Chronic Asthma (1 source) Asthma 09-29-2015 Chronic Disorders of teeth and jaw (16 sources) Toothache; Translations: [Other specified disorders of teeth and supporting structures] Onset: 08-31-2022 10-25-2021 Episodic Mood disorders (3 sources) [place]; Translations: [Bipolar affective disorder, current episode manic] Onset: 12-08-2019 12-09-2019 Chronic Residual codes; unclassified (2 sources) Pain; Translations: [Pain due to dental caries] Episodic Skin and subcutaneous tissue infections (13 sources) Abscess of right thigh; Translations: [Cutaneous abscess of right lower limb] Onset: 06-06-2023 08-18-2015 Episodic Skin and subcutaneous tissue infections (2 sources) Cellulitis of finger of right hand; Translations: [Cellulitis of finger of right hand] Substance-related disorders (1 source) Polysubstance abuse ; Translations: [Polysubstance abuse] Onset: 12-09-2019 12-09-2019 Chronic Substance-related disorders (4 sources) Drug-induced psychosis; Translations: [Other psychoactive substance use, 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] 12-15-2018 Episodic Superficial injury; contusion (4 sources) Abrasion of buccal mucosa; Translations: [Abrasion of oral cavity, initial encounter] 09-07-2016 Episodic Unclassified (4 sources) No history of clinical finding in subject; Translations: [No significant past medical history] 05-09-2019 Past or Other Problems Problem Classification Problem Date Documented Da te Episodic/Chronic Other skin disorders (1 source) Localized swelling, mass and lump, head; Translations: [Localized swelling, mass and lump, head] Onset: 08-26-2022 Episodic Results Test Name Value Interpretation Reference Range Facility Emergency Department Summary on 07-26-[address] [facility] [address] [place] [address] Emergency Department Summary 07/26/23 MR#: [id number] Acct: [id number] Name: DANILO OQUENDO Jr. Rep #: [id number] : 1980 43 From: Lane Mora DO PCP: Care Physician,No Primary Status:DEP ER Location: ED HPI History of Present Illness Chief Complaint: Dental PFSH PFSH Home Medications ???Medication ???Instructions ???Recorded ???Last Taken ???Type penicillin V potassium 500 mg 500 mg PO 4X/DAY #40 tabs 10/17/21 Unknown Rx tablet penicillin V potassium 250 mg 500 mg (2 x 250 mg) PO 4X/DAY #40 08/21/22 Unknown Rx tablet tabs amoxicillin 875 mg-potassium 1 tab PO BID #14 tabs 08/26/22 Unknown Rx clavulanate 125 mg tablet amoxicillin 875 mg-potassium 1 tab PO BID 7 days #14 tabs 07/26/23 Unknown Rx clavulanate 125 mg tablet Allergy/AdvReac Type Severity Reaction Status Date / Time aspirin AdvReac Upset Verified 07/26/23 07:48 Stomach ibuprofen AdvReac Upset Verified 07/26/23 07:48 Stomach naproxen (From Naprosyn) AdvReac Upset Verified 07/26/23 07:48 Stomach Surgical History no surgical history Social History Smoking Status: Current every day smoker tobacco type: cigarettes EXAM Physical Exam Const Vital Signs: 07/26/23 07:48 07/26/23 07:52 07/26/23 07:52 Temperature 98.4 F 97.8 F Temperature Source Temporal Oral Pulse Rate 64 88 88 Respiratory Rate 18 18 18 Blood Pressure 141/95 H 144/78 H 144/78 H Blood Pressure Mean 110 100 100 Pulse Ox 99 98 98 Oxygen Delivery Method Room Air Room Air Room Air [facility] Narrative Medical decision making narrative: HISTORY OF PRESENT ILLNESS: 43-year-old male presents with left-sided face swelling. Was concerned about a dental infection. Notes left upper jaw swelling. REVIEW OF SYSTEMS: Pertinent positives: Swelling, pain left upper jaw Pertinent negatives: Drooling, difficulty controlling secretions PHYSICAL EXAM: Nursing triage notes reviewed, Vital signs reviewed Constitutional: please see mdm HENT: MMM, swelling over the left maxillary sinus, noted evidence of fluctuance and induration to left upper jaw near the incisor. No submandibular edema or induration, no tonsillar exudates or erythema, uvula midline, patient was controlling secretions, no drooling, no trimus, no dysphonia Eyes: Pupils equal round and reactive to light, Extraocular muscles intact Neck: No stridor, no JVD, full neck ROM Lungs: Clear to auscultation, No wheezing or rales. No increased work of breathing, no conversational dyspnea, no accessory muscle use, no nasal flaring. No respiratory distress noted Heart: Regular rate and rhythm, No murmurs, No rubs and No gallops, 2+ distal pulses (radial, femoral, posterior tibial) in all extremities MEDICAL DECISION MAKING: Chief Complaint: Dental pain External records reviewed: No recent imaging Factors affecting care: None Social determinants of health: None History obtained from others: [None Consults: None none MDM Narrative: The patient was hemodynamically stable, afebrile, nontoxic-appearing. Exam consistent with likely dental abscess No clinical exam evidence of ANUG, Alfredo angina, RPA, GENERAL MAINTENANCE ENGINEER I considered the following differential diagnosis: Dental abscess, ANUG, Ludewig's angina, RPA, GENERAL MAINTENANCE ENGINEER, dental caries, gingivitis Injected small amount of lidocaine in the area of greatest fluctuance, placed an 18-gauge needle and attempt to drain obvious abscess. Got 3cc of purulent material. Gave Augmentin and dental follow-up. Strict return precautions discussed. Shared decision making: I will have a discussion with the patient and or visitors regarding risk/benefits of further testing or admission. They will be made aware of of the risk/benefits inherent in this decision they will be given the opportunity to voice understanding. Impression: 1. Dental abscess 2. Poor dentition 3. Dental caries Disposition: Discharge home This note was generated with Deenty dictation software. It may contain incorrect words, spelling, and punctuation that were not noted in review of the chart prior to signing. Discharge Plan Triage Chief Complaint: Dental ED Provider: Lane Mora Dx/Rx/DC Orders Instructions: Dental Abscess Prescriptions: New amoxicillin-pot clavulanate 875-125 mg tablet 1 tab PO BID 7 Days Qty: 14 0RF No Action penicillin V potassium 500 mg tablet 500 mg PO 4X/DAY Qty: 40 0RF penicillin V potassium 250 mg tablet 500 mg PO 4X/DAY Qty: 40 0RF amoxicillin-pot clavulanate 875-125 mg tablet 1 tab PO BID Qty: 14 0RF Stand Alone Forms: ED Work / School Excuse Primary Care Provider: (more content not included)... Normal [facility] CT MAXILLOFACIAL W/ CONTRAST on 06-07-2023 CT MAXILLOFACIAL W/ CONTRAST ORIGINAL EXAMINATION: CT OF THE FACE WITH CONTRAST 06/06/2023 TECHNIQUE: CT of the face was performed with the administration of intravenous contrast. Multiplanar reformatted images are provided for review. Automated exposure control, iterative reconstruction, and/or weight based adjustment of the mA/kV was utilized to reduce the radiation dose to as low as reasonably achievable. COMPARISON: None. HISTORY: ORDERING SYSTEM PROVIDED HISTORY: Reason for Exam: left sided facial pain and swelling x 5 days L maxillary swelling, suspect dental abscess FINDINGS: PHARYNX/LARYNX: The palatine tonsils are normal in appearance. The tongue is normal in appearance. The valleculae, epiglottis, aryepiglottic folds and pyriform sinuses appear unremarkable. No mass or abscess is seen. SALIVARY GLANDS: The parotid and submandibular glands appear unremarkable. LYMPH NODES: No cervical lymphadenopathy is seen. SOFT TISSUES: Overlying the infection described below is an area of enhancement with low soft tissue density centrally in the left cheek consistent with phlegmon. There is adjacent soft tissue stranding consistent with cellulitis. BRAIN/ORBITS/SINUSE S: The visualized portion of the intracranial contents appear unremarkable. The visualized portion of the orbits, paranasal sinuses and mastoid air cells demonstrate no acute abnormality. BONES: There are numerous dental caries and a right mandibular periapical lucency as well as a left maxillary periapical lucency. Associated with this latter is overlying bone erosion and a 8 mm x 8 mm subperiosteal phlegmon, with peripheral enhancement but soft tissue density right than liquid internally. IMPRESSION: Inflammatory changes of the left facial soft tissues appear secondary to a left maxillary periapical lucency which has eroded through the bone. There is an associated 8 mm subperiosteal phlegmon without drainable fluid component. Phlegmon is also seen in the overlying cheek soft tissues with no drainable fluid component. Regional soft tissue edema is likely reflective of associated cellulitis. Interpreted by: Homar Rockwell Preliminary Report By: Homar Rockwell Electronically signed By Homar Rockwell Dictated Date: 06/06/2023 10:16:42 PM Prelim Date: 06/06/2023 10:24:31 PM Sign Date: 06/06/2023 10:24:31 PM Ordering Provider: SARA Marroquin [facility] ([place]) .Auto Diffon 06-06-2023 Basophil, Absolute 0.1 10 3/mcL Normal 0.0-0.2 [facility] ([place]) Comment on above: Performed By: #### A HAL, CMP, ADIFF, GFR, CBC, MDW #### [address] [address] Basophils/100 WBC (Bld) 0.4 % Normal 0.0-2.5 [facility] ([place]) Comment on above: Performed By: #### A HAL, CMP, ADIFF, GFR, CBC, MDW #### [address] [address] Eosinophil, Absolute 0.3 10 3/mcL Normal 0.0-0.4 [facility] ([place]) Comment on above: Performed By: #### A HAL, CMP, ADIFF, GFR, CBC, MDW #### [address] [address] Eosinophils/100 WBC (Bld) 2.3 % Normal 0.0-7.0 [facility] ([place]) Comment on above: Performed By: #### A HAL, CMP, ADIFF, GFR, CBC, MDW #### [address] [address] Lymphocyte, Absolute 2.8 10 3/mcL Normal 0.8-3.9 [facility] ([place]) Comment on above: Performed By: #### A HAL, CMP, ADIFF, GFR, CBC, MDW #### [address] [address] Lymphocytes/100 WBC (Bld) 21.1 % Normal 10.0-50.0 [facility] ([place]) Comment on above: Performed By: #### A HAL, CMP, ADIFF, GFR, CBC, MDW #### [address] [address] Monocyte, Absolute 1.0 10 3/mcL Normal 0.2-1.0 [facility] ([place]) Comment on above: Performed By: #### A HAL, CMP, ADIFF, GFR, CBC, MDW #### [address] [address] Monocytes/100 WBC (Bld) 7.5 % Normal 1.7-13.0 [facility] ([place]) Comment on above: Performed By: #### A HAL, CMP, ADIFF, GFR, CBC, LEROY #### [address] [address] Neutrophils/100 WBC (Bld) 68.7 % Normal 37.0-80.0 [facility] ([place]) Comment on above: Performed By: #### A HAL, CMP, ADIFF, GFR, CBC, LEROY #### [address] [address] .GFRon 06-06-2023 GFR 93 ml/min/1.73sqm Normal [facility] ([place]) Comment on above: Result Comment: GFR Population mean for , Non- Americans Ages 20-29 = 116 mL/min/1.73 sq.m. Ages 30-39 = 107 mL/min/1.73 sq.m. Ages 40-49 = 99 mL/min/1.73 sq.m. Ages 50-59 = 93 mL/min/1.73 sq.m. Ages 60-69 = 85 mL/min/1.73 sq.m. Ages 70+ = 75 mL/min/1.73 sq.m. Chronic Kidney Disease: Less than 60 mL/min/1.73 square meters End Stage Renal Disease: Less than 15 mL/min/1.73 square meters Performed By: #### A HAL, CMP, ADIFF, GFR, CBC, LEROY #### [address] [address] GFR Non- 77 ml/min/1.73sqm Normal [facility] ([place]) Comment on above: Result Comment: GFR Population mean for , Non- Americans Ages 20-29 = 116 mL/min/1.73 sq.m. Ages 30-39 = 107 mL/min/1.73 sq.m. Ages 40-49 = 99 mL/min/1.73 sq.m. Ages 50-59 = 93 mL/min/1.73 sq.m. Ages 60-69 = 85 mL/min/1.73 sq.m. Ages 70+ = 75 mL/min/1.73 sq.m. Chronic Kidney Disease: Less than 60 mL/min/1.73 square meters End Stage Renal Disease: Less than 15 mL/min/1.73 square meters Performed By: #### A HAL, CMP, ADIFF, GFR, CBC, LEROY #### [address] [address] .MDWon 06-06-2023 Monocyte Distribution Width 17.00 Normal 0.00-20.00 [facility] ([place]) Comment on above: Result Comment: For ED adult patients suspected of sepsis, MDW<=20.0 does not rule out sepsis or risk of sepsis Performed By: #### A HAL, CMP, ADIFF, GFR, CBC, LEROY #### [place] [address] .NEUABSon 06-06-2023 Neutrophil, Absolute 9.0 10 3/mcL High 2.9-6.2 [facility] ([place]) Comment on above: Performed By: #### A HAL, CMP, ADIFF, GFR, CBC, LEROY #### [place] [address] CBCon 06-06-2023 Erythrocyte distribution width (RBC) [Ratio] 13.9 % Normal 11.5-14.5 [facility] ([place]) Comment on above: Performed By: #### A HAL, CMP, ADIFF, GFR, CBC, LEROY #### [place] [address] Hematocrit (Bld) [Volume fraction] 37.5 % Low 42.0-52.0 [facility] ([place]) Comment on above: Performed By: #### A HAL, CMP, ADIFF, GFR, CBC, W #### [place] [address] Hgb 13.1 G/dL Low 14.0-18.0 [facility] ([place] Comment on above: Performed By: #### A HAL, CMP, ADIFF, GFR, CBC, W #### [place] [address] MCH (RBC) [Entitic mass] 31.9 pg High 27.0-31.2 [facility] ([place]) Comment on above: Performed By: #### A HAL, CMP, ADIFF, GFR, CBC, LEROY #### [address] [address] MCHC 35.0 G/dL Normal 31.8-35.4 [facility] ([place]) Comment on above: Performed By: #### A HAL, CMP, ADIFF, GFR, CBC, W #### [address] [address] MCV (RBC) [Entitic vol] 91.2 fL Normal 80.0-94.0 [facility] ([place]) Comment on above: Performed By: #### A HAL, CMP, ADIFF, GFR, CBC, LEROY #### [address] [address] Platelet 232 10 3/mcL Normal 130-400 [facility] ([place]) Comment on above: Performed By: #### A HAL, CMP, ADIFF, GFR, CBC, LEROY #### [address] [address] Platelet mean volume (Bld) [Entitic vol] 7.6 fL Normal 7.4-10.4 [facility] ([place]) Comment on above: Performed By: #### A HAL, CMP, ADIFF, GFR, CBC, LEROY #### [address] [address] RBC 4.12 10 6/mcL Normal 4.04-6.13 [facility] ([place]) Comment on above: Performed By: #### A HAL, CMP, ADIFF, GFR, CBC, LEROY #### [address] [address] WBC 13.0 10 3/mcL High 4.6-10.8 [facility] ([place]) Comment on above: Performed By: #### A HAL, CMP, ADIFF, GFR, CBC, LEROY #### [place] [id number] CMPon 06-06-2023 Albumin Level 3.7 G/dL Normal 3.5-5.0 [facility] ([place] Comment on above: Performed By: #### A HAL, CMP, ADIFF, GFR, CBC, W #### [address] [address] Albumin/Globulin [Mass ratio] 1.3 {ratio} Normal 1.1-2.5 [facility] ([place]) Comment on above: Performed By: #### A HAL, CMP, ADIFF, GFR, CBC, W #### [address] [address] ALP [Catalytic activity/Vol] 72 U/L Normal 40-135 [facility] ([place]) Comment on above: Performed By: #### A HAL, CMP, ADIFF, GFR, CBC, LEROY #### [address] [address] ALT [Catalytic activity/Vol] 18 U/L Normal 16-63 [facility] ([place]) Comment on above: Performed By: #### A HAL, CMP, ADIFF, GFR, CBC, LEROY #### [address] [address] AST [Catalytic activity/Vol] 11 U/L Normal 10-40 [facility] ([place]) Comment on above: Performed By: #### A HAL, CMP, ADIFF, GFR, CBC, W #### [address] [address] Bili Total 0.5 mg/dL Normal 0.2-1.0 [facility] ([place]) Comment on above: Result Comment: Use of this assay is not recommended for patients undergoing treatment with eltrombopag due to the potential for falsely elevated results. Performed By: #### A HAL, CMP, ADIFF, GFR, CBC, MDW #### [address] [address] BUN/Creatinine Ratio 10 ratio Normal 7-27 [facility] ([place]) Comment on above: Performed By: #### A HAL, CMP, ADIFF, GFR, CBC, MDW #### [address] [address] Calcium [Mass/Vol] 8.7 mg/dL Normal 8.4-10.2 [facility] ([place]) Comment on above: Performed By: #### A HAL, CMP, ADIFF, GFR, CBC, MDW #### [address] [address] Chloride [Moles/Vol] 105 mmol/L Normal 98-107 [facility] ([place] Comment on above: Performed By: #### A HAL, CMP, ADIFF, GFR, CBC, MDW #### [place] [address] CO2 [Moles/Vol] 30 mmol/L High 22-29 [facility] ([place]) Comment on above: Performed By: #### A HAL, CMP, ADIFF, GFR, CBC, W #### [place] [address] Creatinine [Mass/Vol] 1.05 mg/dL Normal 0.70-1.30 [facility] ([place]) Comment on above: Performed By: #### A HAL, CMP, ADIFF, GFR, CBC, W #### [address] [address] Electrolyte Balance 7.0 mEq/L Normal 4.0-15.0 [facility] ([place] Comment on above: Performed By: #### A HAL, CMP, ADIFF, GFR, CBC, W #### [address] [address] Globulin 2.8 G/dL Normal [facility] ([place]) Comment on above: Performed By: #### A HAL, CMP, ADIFF, GFR, CBC, W #### [address] [address] Glucose [Mass/Vol] 92 mg/dL Normal 70-105 [facility] ([place] Comment on above: Performed By: #### A HAL, CMP, ADIFF, GFR, CBC, W #### [address] [address] Potassium [Moles/Vol] 4.3 mmol/L Normal 3.5-5.1 [facility] ([place]) Comment on above: Performed By: #### A HAL, CMP, ADIFF, GFR, CBC, MDW #### [place] [address] [place], [place] [address] Sodium [Moles/Vol] 142 mmol/L Normal 136-145 [facility] ([place] Comment on above: Performed By: #### A HAL, CMP, ADIFF, GFR, CBC, MDW #### [address] [address] Total Protein 6.5 G/dL Normal 6.4-8.2 [facility] ([place]) Comment on above: Performed By: #### A HAL, CMP, ADIFF, GFR, CBC, MDW #### [address] [address] Urea nitrogen [Mass/Vol] 11 mg/dL Normal 7-18 [facility] ([place]) Comment on above: Performed By: #### A HAL, CMP, ADIFF, GFR, CBC, MDW #### [address] [address] LABORATORYOrdered By: SYSTEM SYSTEM on 06-06-2023 Albumin BCP dye [Mass/Vol] 3.7 G/dL Normal 3.5 - 5.0 G/dL AO ADM SS Albumin/Globulin [Mass ratio] 1.3 {ratio} Normal 1.1 - 2.5 ratio AO ADM SS ALP [Catalytic activity/Vol] 72 U/L Normal 40 - 135 U/L AO ADM SS ALT With P-5'-P [Catalytic activity/Vol] 18 U/L Normal 16 - 63 U/L AO ADM SS AST With P-5'-P [Catalytic activity/Vol] 11 U/L Normal 10 - 40 U/L AO ADM SS Basophil, Absolute 0.1 103/mcL Normal 0.0 - 0.2 10^3/mcL AO Workflow SS Basophils/100 WBC (Bld) 0.4 % Normal 0.0 - 2.5 % AO Workflow SS Bilirubin [Mass/Vol] 0.5 mg/dL Normal 0.2 - 1 .0 mg/dL AO ADM SS Comment on above: Interpretive Data: U se of this assay is not recommended for patients undergoing treatment with eltrombopag due to the potential for falsely elevated results. Calcium [Mass/Vol] 8.7 mg/dL Normal 8.4 - 10. 2 mg/dL AO ADM SS Chloride [Moles/Vol] 105 mmol/L Normal 98 - 10 7 mmol/L AO ADM SS CO2 [Moles/Vol] 30 mmol/L High 22 - 29 mmol/L AO ADM SS Creatinine [Mass/Vol] 1.05 mg/dL Normal 0.70 - 1.30 mg/dL AO ADM SS Electrolyte Balance 7.0 mEq/L Normal 4.0 - 15 .0 mEq/L AO ADM SS Eosinophil, Absolute 0.3 103/mcL Normal 0.0 - 0 .4 10^3/mcL AO Workflow SS Eosinophils/100 WBC (Bld) 2.3 % Normal 0.0 - 7.0 % AO Workflow SS Erythrocyte distribution width (RBC) [Ratio] 13.9 % Normal 11.5 - 14.5 % AO Workflow SS GFR/1.73 sq M.predicted among blacks MDRD (S/P/Bld) [Vol rate/Area] 93 ml/min/1.73sqm Invalid Interpretation Code AO Chemistry S Comment on above: Interpretive Data: GFR Population mean for , Non- Americans Ages 20-29 = 116 mL/min/1.73 sq.m. Ages 30-39 = 107 mL/min/1.73 sq.m. Ages 40-49 = 99 mL/min/1.73 sq.m. Ages 50-59 = 93 mL/min/1.73 sq.m. Ages 60-69 = 85 mL/min/1.73 sq.m. Ages 70+ = 75 mL/min/1.73 sq.m. Chronic Kidney Disease: Less than 60 mL/min/1.73 square meters End Stage Renal Disease: Less than 15 mL/min/1.73 square meters GFR/1.73 sq M.predicted among non-blacks MDRD (S/P/Bld) [Vol rate/Area] 77 ml/min/1.73sqm Invalid Interpretation Code AO Chemistry S Comment on above: Interpretive Data: GFR Population mean for , Non- Americans Ages 20-29 = 116 mL/min/1.73 sq.m. Ages 30-39 = 107 mL/min/1.73 sq.m. Ages 40-49 = 99 mL/min/1.73 sq.m. Ages 50-59 = 93 mL/min/1.73 sq.m. Ages 60-69 = 85 mL/min/1.73 sq.m. Ages 70+ = 75 mL/min/1.73 sq.m. Chronic Kidney Disease: Less than 60 mL/min/1.73 square meters End Stage Renal Disease: Less than 15 mL/min/1.73 square meters Globulin 2.8 G/dL Invalid Interpretation Code AO ADM SS Glucose [Mass/Vol] 92 mg/dL Normal 70 - 105 mg/dL AO ADM SS Hematocrit (Bld) [Volume fraction] 37.5 % Low 42.0 - 52.0 % AO Workflow SS Hemoglobin (Bld) [Mass/Vol] 13.1 G/dL Low 14.0 - 18.0 G/dL AO Workflow SS Lymphocyte, Absolute 2.8 103/mcL Normal 0.8 - 3 .9 10^3/mcL AO Workflow SS Lymphocytes/100 WBC (Bld) 21.1 % Normal 10.0 - 50.0 % AO Workflow SS MCH (RBC) [Entitic mass] 31.9 pg High 27.0 - 31.2 pg AO Workflow SS MCHC 35.0 G/dL Normal 31.8 - 35.4 G/dL AO Workflow SS MCV (RBC) [Entitic vol] 91.2 fL Normal 80.0 - 94.0 fL AO Workflow SS Monocyte distribution width Auto (Bld) [Entitic vol] 17.00 1 Normal 0.00 - 20.00 AO Workflow SS Comment on above: Result Comment: For ED adult patients suspected of sepsis, MDW<=20.0 does not rule out sepsis or risk of sepsis Monocyte, Absolute 1.0 103/mcL Normal 0.2 - 1.0 10^3/mcL AO Workflow SS Monocytes/100 WBC (Bld) 7.5 % Normal 1.7 - 13.0 % AO Workflow SS Neutrophil, Absolute 9.0 103/mcL High 2.9 - 6 .2 10^3/mcL AO Workflow SS Neutrophils/100 WBC (Bld) 68.7 % Normal 37.0 - 80.0 % AO Workflow SS Platelet mean volume (Bld) [Entitic vol] 7.6 fL Normal 7.4 - 10.4 fL AO Workflow SS Platelets (Bld) [#/Vol] 232 103/mcL Normal 130 - 400 10^3/mcL AO Workflow SS Potassium [Moles/Vol] 4.3 mmol/L Normal 3.5 - 5.1 mmol/L AO ADM SS Protein [Mass/Vol] 6.5 G/dL Normal 6.4 - 8.2 G/dL AO ADM SS RBC (Bld) [#/Vol] 4.12 106/mcL Normal 4.04 - 6.1 3 10^6/mcL AO Workflow SS Sodium [Moles/Vol] 142 mmol/L Normal 136 - 145 mmol/L AO ADM SS Urea nitrogen [Mass/Vol] 11 mg/dL Normal 7 - 18 mg/dL AO ADM SS Urea nitrogen/Creatinine [Mass ratio] 10 ratio Normal 7 - 27 ratio AO ADM SS WBC (Bld) [#/Vol] 13.0 103/mcL High 4.6 - 10.8 10^3/mcL AO Workflow SS Emergency Department Summary on 08-26-[address] [facility] Records Department [address] [place] [address] Emergency Department Summary 08/26/22 MR#: [id number] Acct: [id number] Name: DANILO OQUENDO Rep #: [id number] : 1980 42 From: Lane Mora DO PCP: Care Physician,No Primary Status:[facility] ER Location: ED HPI History of Present Illness Chief Complaint: Dental PFSH PFSH Home Medications penicillin V potassium 500 mg tablet 500 mg PO 4X/DAY #40 tabs 10/17/21 [Rx Last Taken Unknown] penicillin V potassium 250 mg tablet 500 mg (2 x 250 mg) PO 4X/DAY #40 tabs 08/21/22 [Rx Last Taken Unknown] Allergy/AdvReac Type Severity Reaction Status Date / Time aspirin AdvReac Upset Verified 08/26/22 18:24 Stomach ibuprofen AdvReac Upset Verified 08/26/22 18:24 Stomach naproxen [From Naprosyn] AdvReac Upset Verified 08/26/22 18:24 Stomach Surgical History no surgical history Social History Smoking Status: Current every day smoker tobacco type: cigarettes EXAM Physical Exam Const Vital Signs: 08/26/22 18:23 Temperature 97 F L Temperature Source Temporal Pulse Rate 77 Respiratory Rate 18 Blood Pressure 123/56 H Blood Pressure Mean 78 Pulse Ox 99 Oxygen Delivery Method Room Air [facility] Narrative Medical decision making narrative: HISTORY OF PRESENT ILLNESS: 42-year-old male here for dental pain. States he is currently on penicillin. He further states that left sided lower jaw swelling. He is concerned he may have an abscess. Denies any fever or vomiting. Denies any submandibular edema neck stiffness or difficulty swallowing. Denies any drooling or difficulty opening his mouth. REVIEW OF SYSTEMS: Pertinent positives: Pertinent negatives: PHYSICAL EXAM: Nursing triage notes reviewed, Vital signs reviewed Constitutional: please see mdm HENT: MMM, no evidence of dental abscess, no submandibular edema or induration, no tonsillar exudates or erythema, uvula midline, patient was controlling secretions, no drooling, no trimus, no dysphonia Eyes: Pupils equal round and reactive to light, Extraocular muscles intact Neck: No stridor, no JVD, full neck ROM Lungs: Clear to auscultation, No wheezing or rales. No increased work of breathing, no conversational dyspnea, no accessory muscle use, no nasal flaring. No respiratory distress noted Heart: Regular rate and rhythm, No murmurs, No rubs and No gallops, 2+ distal pulses (radial, femoral, posterior tibial) in all extremities MEDICAL DECISION MAKING: Chief Complaint: Dental pain External records reviewed: Seen on 08/21/2022 noted at time of left-sided facial swelling. Diagnosed with dental abscess at that time. [facility] Narrative: The patient was hemodynamically stable, afebrile, nontoxic-appearing. 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 1% lidocaine was injected abscess was drained with a 22-gauge needle with approximately 1 cc of yellow purulent drainage expectorated. Patient was given Augmentin for further antimicrobial effect. He was given instructions to take Tylenol and ibuprofen for pain and fever control. He was instructed to follow-up with dentistry at the next available appointment. Procedure: Incision and Drainage The procedure was performed by myself. Location: Left lower jaw Risks and benefits: Risks, benefits, and alternatives were discussed. Questions were sought and answered, and verbal consent provided for the procedure. Anesthesia: 1% lidocaine Procedure Description: 22-gauge needle was inserted into the area of fluctuance with return of purulent fluid. Patient tolerated the procedure well. The patient tolerated the procedure well without complications. Shared decision making: I will have a discussion with the patient and or visitors regarding risk/benefits of further testing or admission. They will be made aware of of the risk/benefits inherent in this decision they will be given the opportunity to voice understanding. Consults: None Discharge Plan Triage Chief Complaint: Dental ED Provider: Lane Mora Dx/Rx/DC Orders Prescriptions: No Action penicillin V potassium 500 mg tablet 500 mg PO 4X/DAY Qty: 40 0RF penicillin V potassium 250 mg tablet 500 mg PO 4X/DAY Qty: 40 0RF Primary Care Provider: Care Physician,No Primary Referrals: Care Physician,No Primary [Primary Care Provider] - What to do if you have Problems For any increased pain, shortness of breath, bleeding, nausea or vomiting, chest pain, or any unexpected problems, contact your Primary Care Provider. Call [facility] ([phone] (more content not included)... Normal [facility] Emergency Department Summary on 08-21-[address] [facility] Records Department [address] [place] [address] Emergency Department Summary 08/21/22 MR#: [id number] Acct: [id number] Name: DANILO OQUENDO . Rep #: [id number] : 1980 42 From: Evelyn Wiley MD PCP: Care Physician,No Primary Status:DEP ER Location: ED HPI History of Present Illness Chief Complaint: Dental Informant: patient Onset/Context/Bushra fleming Onset: Weeks Context: Gradual Onset Current Severity: Moderate Maximum Severity: Moderate Associated Symptoms Assocated Symptom - Dental: face swelling Narrative Narrative: Patient presents with left-sided facial swelling. He states he first noted symptoms about 3 weeks ago. He thought he might have a an ingrown hair or an abscess. He was trying to squeeze the area but it only made it worse. PFSH PFSH Medical History no medical history no medical history Home Medications penicillin V potassium 500 mg tablet 500 mg PO 4X/DAY #40 tabs 10/17/21 [Rx Last Taken Unknown] penicillin V potassium 250 mg tablet 500 mg (2 x 250 mg) PO 4X/DAY #40 tabs 08/21/22 [Rx Last Taken Unknown] Allergy/AdvReac Type Severity Reaction Status Date / Time aspirin AdvReac Upset Verified 10/17/21 06:12 Stomach ibuprofen AdvReac Upset Verified 10/17/21 06:12 Stomach naproxen [From Naprosyn] AdvReac Upset Verified 10/17/21 06:12 Stomach Surgical History no surgical history Social History Smoking Status: Current every day smoker tobacco type: cigarettes ROS ROS ED Constitutional Constitutional ED: Denies chills or fever(s) Eyes Eyes: Denies discharge from eye(s) ENT ENT ED: Denies discharge from eye(s), rhinorrhea or sore throat Cardiovascular Cardiovascular: Denies chest pain Respiratory/Chest Respiratory/Chest: Denies cough or dyspnea Gastrointestinal Gastrointestinal: Denies abdominal pain, nausea or vomiting Musculoskeletal Musculoskeletal: Denies extremity pain Integumentary Denies Abrasions or rash Neurologic Neurologic: Denies headache(s) or weakness Allergic/Immunologi c Allergic/Immunologi c ED: Denies lip swelling or urticaria EXAM Physical Exam Const Vital Signs: 08/21/22 17:57 Temperature 97.2 F L Temperature Source Temporal Pulse Rate 74 Respiratory Rate 18 Blood Pressure 134/74 H Blood Pressure Mean 94 Pulse Ox 98 Oxygen Delivery Method Room Air Positive well nourished and well developed General Appearance ED: well developed HEENT HEENT Narrative: Edema noted along the left mandible. No erythema or excessive warmth. Palpable abscess measuring approximately 1 cm in diameter feels to be closer to the intraoral surface. On intraoral examination patient's premolars and molars on the left have been previously extracted or broken off. The first premolar site does have an opening in the gum. There does appear to be fullness between this area and the palpable abscess. Posterior pharynx examination is unremarkable. No trismus. Eyes PERRL and EOMs intact bilaterally Neck no lymphadenopathy Chest Wall inspection of chest normal and palpation of chest normal Resp normal respiratory effort and clear to auscultation bilaterally Cardio regular rate and regular rhythm Extremity normal to inspection Neuro oriented x3 and no sensory deficits noted Motor Exam: strength 5/5 throughout Psych mental status grossly normal Skin no rashes or lesions noted MDM MDM MDM Narrative Medical decision making narrative: Patient's exam findings are most consistent with dental abscess. He will be given a dental referral sheet started on [employer]ee K. He reports allergies to aspirin, ibuprofen, and Naprosyn giving him gastritis. He will be treated with Tylenol. Return instructions provided. Discharge Plan Triage Chief Complaint: Dental ED Provider: Evelyn Wiley Dx/Rx/DC Orders Clinical Impression: Dental abscess Instructions: ED Dental Abscess Prescriptions: New penicillin V potassium 250 mg tablet 500 mg PO 4X/DAY Qty: 40 0RF No Action penicillin V potassium 500 mg tablet 500 mg PO 4X/DAY Qty: 40 0RF Primary Care Provider: Care Physician,No Primary Referrals: Care Physician,No Primary [Primary Care Provider] - Activity Restrictions/Additi onal Instructions: Dental list provided. Please follow-up with a dentist within the next couple weeks. Disposition Disposition: Home, Self Care What to do if you have Problems For any increased pain, shortness of breath, bleeding, nausea or vomiting, chest pain, or any unexpected problems, contact your Primary Care Provider. Call [facility] ([phone]) or report to the closest Emergency Room. Call 911 if necessary. 08/21/22 2353 Cos (more content not included)... Normal [facility] Valproic Acid /Depakene Neftalye glynn 12-12-2019 Valproic Acid 59 mcg/mL Normal 50-100 [facility] Valproic acid level, totalon 12-12-2019 Valproic Acid Lvl 59 [facility], [place] Hemoglobin A1con 12-09-2019 HbA1c (Bld) [Mass fraction] 5.6 % 4 - 5.6 % [place], [place] Hgb A1Con 12-09-2019 HbA1c (Bld) [Mass fraction] 5.6 % Normal 4.0-5.6 [facility] Lipid Panelon 12-09-2019 Cholesterol [Mass/Vol] 148 mg/dL Normal 0-199 [facility] Cholesterol in HDL [Mass/Vol] 69 mg/dL Normal >40 [facility] Cholesterol in LDL [Mass/Vol] 66 mg/dL Normal 0-99 [facility] Triglyceride [Mass/Vol] 64 mg/dL Normal 0-149 [facility] VLDL Cholesterol (Calculated) 13 mg/dL Normal [facility] Lipid panelon 12-09-2019 Cholesterol [Mass/Vol] 148 mg/dL 0 - 199 mg/dL [place] Cholesterol in HDL [Mass/Vol] 69 mg/dL >40 [place] Cholesterol in LDL [Mass/Vol] 66 mg/dL 0 - 99 mg/dL [place] Triglyceride [Mass/Vol] 64 mg/dL 0 - 149 mg/dL [place] VLDL Cholesterol Calculated 13 mg/dL [place] Basic Metabolic Panelon 11-16 Anion gap [Moles/Vol] 11 mmol/L Normal 7-16 [facility] Calcium [Mass/Vol] 9.8 mg/dL Normal 8.6-10.2 [facility] Chloride [Moles/Vol] 105 mmol/L Normal 98-107 [facility] CO2 [Moles/Vol] 25 mmol/L Normal 22-29 [facility] Creatinine [Mass/Vol] 1.1 mg/dL Normal 0.7-1.2 [facility] GFR/1.73 sq M predicted among blacks MDRD (S/P/Bld) [Vol rate/Area] mL/min/{1.73_m2} Normal [facility] GFR/1.73 sq M predicted among non-blacks MDRD (S/P/Bld) [Vol rate/Area] mL/min/{1.73_m2} Normal >=60 [facility] Comment on above: Result Comment: Vehicle Check In Clerk jesse Kidney Disease: less than 60 ml/min/1.73 sq.m. Kidney Failure: less than 15 ml/min/1.73 sq.m. Results valid for patients 18 years and older. Glucose [Mass/Vol] 104 mg/dL High 74-99 [facility] Potassium [Moles/Vol] 4.6 mmol/L Normal 3.5-5.0 [facility] Sodium [Moles/Vol] 141 mmol/L Normal 132-146 [facility] Urea nitrogen [Mass/Vol] 16 mg/dL Normal 6-20 [facility] Basic metabolic panelon 11-16 Anion gap [Moles/Vol] 11 mmol/L 7 - 16 mmol/L [place] Calcium [Mass/Vol] 9.8 mg/dL 8.6 - 10. 2 mg/dL [place] Chloride [Moles/Vol] 105 mmol/L 98 - 10 7 mmol/L [place] CO2 [Moles/Vol] 25 mmol/L 22 - 29 mmol/L [place] Creatinine [Mass/Vol] 1.1 mg/dL 0.7 - 1.2 mg/dL [place] GFR >60 [place], [place] GFR Non- >60 >=60 mL/min/1.73 [place] Comment on above: Chronic Kidney Disea se: less than 60 ml/min/1.73 sq.m. Kidney Failure: less than 15 ml/min/1.73 sq.m. Results valid for patients 18 years and older. Glucose [Mass/Vol] 104 mg/dL High 74 - 99 mg/dL [place], [place] Interpretation and review of laboratory results Abnormal [place] Potassium [Moles/Vol] 4.6 mmol/L 3.5 - 5 mmol/L [place] Sodium [Moles/Vol] 141 mmol/L 132 - 146 mmol/L [place] Urea nitrogen [Mass/Vol] 16 mg/dL 6 - 20 mg/dL [place] CBCon 12-08-2019 Erythrocyte distribution width (RBC) [Ratio] 14.6 fL 11.5 - 15 fL [place] Hematocrit (Bld) [Volume fraction] 41.1 % 37 - 54 % [place] Hemoglobin (Bld) [Mass/Vol] 13.7 g/dL 12.5 - 16.5 g/dL [place] Interpretation and review of laboratory results Abnormal [place] MCH (RBC) [Entitic mass] 30.7 pg 26 - 35 pg [place] MCHC (RBC) [Mass/Vol] 33.3 % 32 - 34.5 % [place], [place] MCV (RBC) [Entitic vol] 92.2 fL 80 - 99.9 fL [place] Platelet mean volume (Bld) [Entitic vol] 10.3 fL 7 - 12 fL [place] Platelets (Bld) [#/Vol] 240 10*3/uL [place] RBC (Bld) [#/Vol] 4.46 10*6/uL [place] WBC (Bld) [#/Vol] 16.1 10*3/uL High [place] CBC With Platelet No [facility] Erythrocyte distribution width (RBC) [Ratio] 14.6 fL Normal 11.5-15.0 [facility] Hematocrit (Bld) [Volume fraction] 41.1 % Normal 37.0-54.0 [facility] Hemoglobin (Bld) [Mass/Vol] 13.7 g/dL Normal 12.5-16.5 [facility] MCH (RBC) [Entitic mass] 30.7 pg Normal 26.0-35.0 [facility] MCHC (RBC) [Mass/Vol] 33.3 % Normal 32.0-34.5 [facility] MCV (RBC) [Entitic vol] 92.2 fL Normal 80.0-99.9 [facility] Platelet mean volume (Bld) [Entitic vol] 10.3 fL Normal 7.0-12.0 [facility] Platelets (Bld) [#/Vol] 240 E9/L Normal 130-450 [facility] RBC (Bld) [#/Vol] 4.46 E12/L Normal 3.80-5.80 [facility] WBC (Bld) [#/Vol] 16.1 E9/L High 4.5-11.5 [facility] COVID-19on 12-08-2019 COVID-19, NAAT Not Detected Normal Not Detected [facility] Comment on above: Result Comment: Asif reed NAAT: Negative results should be treated as presumptive and, if inconsistent with clinical signs and symptoms or necessary for patient management, should be tested with an alternative molecular assay. Negative results do not preclude SARS-CoV-2 infection and should not be used as the sole basis for patient management decisions. This test has been authorized by the FDA under an Emergency Use Authorization (EUA) for use by authorized laboratories. Fact sheet for Healthcare Providers: https://www.fda.gov/media/772718/download Fact sheet for Patients: https://www.fda.gov/media/511342/download METHODOLOGY: Isothermal Nucleic Acid Amplification SARS-CoV-2, NAAT Not Detected Not Detected [place], [place] Comment on above: Rapid NAAT: Negative results should be treated as presumptive and, if inconsistent with clinical signs and symptoms or necessary for patient management, should be tested with an alternative molecular assay. Negative results do not preclude SARS-CoV-2 infection and should not be used as the sole basis for patient management decisions. This test has been authorized by the FDA under an Emergency Use Authorization (EUA) for use by authorized laboratories. Fact sheet for Healthcare Providers: https://www.fda.gov/media/910513/download Fact sheet for Patients: https://www.fda.gov/media/121762/download METHODOLOGY: Isothermal Nucleic Acid Amplification Serum Drug Screenon 12-08-19 20 Acetaminophen [Mass/Vol] <5.0 Low 10.0-30.0 [facility] Ethanol [Mass/Vol] mg/dL Normal [facility] Comment on above: Result Comment: Not Detected Salicylate <0.3 Normal 0.0-30.0 [facility] TCA Screen Negative Normal Cutoff:300 [facility] Acetaminophen [Mass/Vol] <5.0 Low [place], [place] Ethanol Lvl <10 mg/dL [place] Comment on above: Not Detected Interpretation and review of laboratory results Abnormal [place] Salicylate, Serum <0.3 0 - 30 mg/dL [place] TCA Scrn Negative Cutoff:300 ng/mL [place], [place] UR Drugs of Abuse Panelon UR Amphetamines Screen Positive Abnormal Negative <1000 ng/mL [facility] Comment on above: Result Comment: High concentrations of ephedrine/pseudoephedrine or phenylpropanolamine may cause false positive results for amphetamine. Therefore, confirmatory testing for amphetamine should be considered if clinically indicated. UR Barbiturates Screen NOT DETECTED Normal Negative < 200 ng/mL [facility] UR Benzo Screen NOT DETECTED Normal Negative < 200 ng/mL [facility] UR Cannabinoids Screen Positive Abnormal Negative < 50ng/mL [facility] UR Cocaine Screen NOT DETECTED Normal Negative < 300 ng/mL [facility] UR Fentanyl Screen NOT DETECTED Normal Negative <1 ng/mL [facility] UR Methadone Screen NOT DETECTED Normal Negative <300 ng/mL [facility] UR Opiates Screen NOT DETECTED Normal Negative < 300ng/mL [facility] Comment on above: Result Comment: Note : The Opiate Screen is not intended to detect Oxycodone. UR Oxycodone Screen NOT DETECTED Normal Negative <100 ng/mL [facility] UR PCP Screen NOT DETECTED Normal Negative < 25 ng/mL [facility] Drug Screen Comment see below Normal [facility] Comment on above: Result Comment: Thes e drug screen results are for medical purposes only and should not be considered definitive or confirmed. The drug methodology concentration value must be greater than or equal to the cutoff to be reported as positive. Confirmatory testing orders and/or interpretive screening questions can be directed to toxicology at [phone]. The absence of expected drug(s) and/or metabolite(s) may be due to inappropriate timing of specimen collection relative to drug administration, poor drug absorption, diluted/adulterated urine, or limitations of screening testing methodology. URINE DRUG SCREENon 12-08-19 20 Amphetamine Screen, Urine Positive Abnormal Negative <1000 ng/mL [place], [place] Comment on above: High concentrations of ephedrine/pseudoephedrine or phenylpropanolamine may cause false positive results for amphetamine. Therefore, confirmatory testing for amphetamine should be considered if clinically indicated. Barbiturate Screen, Ur NOT DETECTED Negative < 200 ng/mL [facility] [place], [place] Benzodiazepine Screen, Urine NOT DETECTED Negative < 200 ng/mL [facility], [place] Cannabinoid Scrn, Ur Positive Abnormal Negativ e < 50ng/mL [facility], [place] Cocaine Metabolite Screen, Urine NOT DETECTED Negative < 300 ng/mL [facility], [place] Drug Screen Comment: see below [facility] [place], [place] Comment on above: These drug screen re sults are for medical purposes only and should not be considered definitive or confirmed. The drug methodology concentration value must be greater than or equal to the cutoff to be reported as positive. Confirmatory testing orders and/or interpretive screening questions can be directed to toxicology at [phone]. The absence of expected drug(s) and/or metabolite(s) may be due to inappropriate timing of specimen collection relative to drug administration, poor drug absorption, diluted/adulterated urine, or limitations of screening testing methodology. FENTANYL SCREEN, URINE NOT DETECTED Negative <1 ng/mL [place], [place] Interpretation and review of laboratory results Abnormal [facility] [place] Methadone Screen, Urine NOT DETECTED Negative <300 ng/mL [facility], [place] Opiate Scrn, Ur NOT DETECTED Negative < 300ng/mL [place], [place] Comment on above: Note: The Opiate Scr een is not intended to detect Oxycodone. Oxycodone Urine NOT DETECTED Negative <10 0 ng/mL [facility] [place] PCP Screen, Urine NOT DETECTED Negative < 25 ng/mL [facility], [place] Otheron 10-11-2019 Kamaljit, y Incoming Radiant Results From [facility] - 10/11/2019 12:23 AM EDT Patient : 1980 Age: 39 years Gender: Male Order Date: 10/11/2019 12:14 AM TECHNIQUE/NUMBER OF IMAGES/COMPARISON/C LINICAL HISTORY: X-ray series of the right hand Frontal lateral and oblique projections History trauma injury to the index finger. FINDINGS: Mild soft tissue swelling is seen towards the mid third of the right index finger. There are normal cortical bone contour and trabecular bone texture for the proximal phalanx, middle phalanx and distal phalanx of the right index finger. The interphalangeal joint spaces are preserved. The phalanxes of the thumb, third, fourth and fifth fingers have unremarkable appearance and as well for all metacarpal bones and for all carpal bones and distal radius and ulna All joint spaces are preserved in the right hand. IMPRESSION: Soft tissue swelling in the mid third of the right index finger. The no acute fractures or dislocations in the right index finger. [facility] tissue swelling in the mid third of the right index finger. The no acute fractures or dislocations in the right index finger. [facility] Patient [facility] 1980 Age: 39 years Gender: Male Order Date: 10/11/2019 12:14 AM TECHNIQUE/NUMBER OF IMAGES/COMPARISON/C LINICAL HISTORY: X-ray series of the right hand Frontal lateral and oblique projections History trauma injury to the index finger. FINDINGS: Mild soft tissue swelling is seen towards the mid third of the right index finger. There are normal cortical bone contour and trabecular bone texture for the proximal phalanx, middle phalanx and distal phalanx of the right index finger. The interphalangeal joint spaces are preserved. The phalanxes of the thumb, third, fourth and fifth fingers have unremarkable appearance and as well for all metacarpal bones and for all carpal bones and distal radius and ulna All joint spaces are preserved in the right hand. [facility] [place] XR HAND RIGHT (MIN 3 VIEWS)o n 10-11-2019 XR HAND RIGHT (MIN 3 VIEWS) Patient : 1980 Age: 39 years Gender: Male Order Date: 10/11/2019 12:14 AM TECHNIQUE/NUMBER OF IMAGES/COMPARISON/C LINICAL HISTORY: X-ray series of the right hand Frontal lateral and oblique projections History trauma injury to the index finger. FINDINGS: Mild soft tissue swelling is seen towards the mid third of the right index finger. There are normal cortical bone contour and trabecular bone texture for the proximal phalanx, middle phalanx and distal phalanx of the right index finger. The interphalangeal joint spaces are preserved. The phalanxes of the thumb, third, fourth and fifth fingers have unremarkable appearance and as well for all metacarpal bones and for all carpal bones and distal radius and ulna All joint spaces are preserved in the right hand. IMPRESSION: Soft tissue swelling in the mid third of the right index finger. The no acute fractures or dislocations in the right index finger. Interpreted by: Bartolo Hidalgo MD Signed by: Bartolo Hidalgo MD 10/11/19 Final result Normal [facility] Vital Signs Date Time Vital Sign Value Performing Clinician Facility 06-06-2023 22:26-0400 Diastolic Blood Pressure Non-Invasive 79 mm[Hg] SARA MATHEWS MD [facility] 06-06-2023 22:26-0400 Heart rate 56 /min SARA MATHEWS MD [facility] 06-06-2023 22:26-0400 Reason For Taking VItal Signs SARA MATHEWS MD [facility] 06-06-2023 22:26-0400 Respiratory rate 18 /min SARA MATHEWS MD [facility] 06-06-2023 22:26-0400 Systolic Blood Pressure Non-Invasive 126 mm[Hg] SARA MATHEWS MD [facility] 06-06-2023 21:44-0400 Diastolic Blood Pressure Non-Invasive 88 mm[Hg] SARA MATHEWS MD [facility] 06-06-2023 21:44-0400 Heart rate 64 /min SARA MATHEWS MD [facility] 06-06-2023 21:44-0400 Reason For Taking VItal Signs SARA MATHEWS MD [facility] 06-06-2023 21:44-0400 Respiratory rate 18 /min SARA MATHEWS MD [facility] 06-06-2023 21:44-0400 Systolic Blood Pressure Non-Invasive 134 mm[Hg] SARA MATHEWS MD [facility] 06-06-2023 20:35-0400 Blood Pressure Cuff Size SARA MATHEWS MD [facility] 06-06-2023 20:35-0400 Blood Pressure Location SARA MATHEWS MD [facility] 06-06-2023 20:35-0400 Blood Pressure Method SARA MATHEWS MD [facility] 06-06-2023 20:35-0400 Body temperature 98.24 [degF] SARA MATHEWS MD [facility] 06-06-2023 20:35-0400 Diastolic Blood Pressure Non-Invasive 84 mm[Hg] SARA MATHEWS MD [facility] 06-06-2023 20:35-0400 Heart rate 60 /min SARA MATHEWS MD [facility] 06-06-2023 20:35-0400 Respiratory rate 16 /min SARA MATHEWS MD [facility] 06-06-2023 20:35-0400 Systolic Blood Pressure Non-Invasive 130 mm[Hg] SARA MATHEWS MD [facility] 08-26-2022 18:23-0400 Body height 165.1 cm [facility] 08-26-2022 18:23-0400 Body mass index (BMI) [Ratio] 19.1 kg/m2 [facility] 08-26-2022 18:23-0400 Body temperature 97 [degF] [facility] 08-26-2022 18:23-0400 Body weight 52.16 kg [facility] 08-26-2022 18:23-0400 Diastolic blood pressure 56 mm[Hg] [facility] 08-26-2022 18:23-0400 Heart rate 77 /min [facility] 08-26-2022 18:23-0400 Respiratory rate 18 /min [facility] 08-26-2022 18:23-0400 SaO2% (BldA) [Mass fraction] 99 % [facility] 08-26-2022 18:23-0400 Systolic blood pressure 123 mm[Hg] [facility] 08-21-2022 18:16-0400 Respiratory rate 16 /min [facility] 08-21-2022 17:57-0400 Body height 165.1 cm [facility] 08-21-2022 17:57-0400 Body mass index (BMI) [Ratio] 19.1 kg/m2 [facility] 08-21-2022 17:57-0400 Body temperature 97.2 [degF] [facility] 08-21-2022 17:57-0400 Body weight 52.16 kg [facility] 08-21-2022 17:57-0400 Diastolic blood pressure 74 mm[Hg] [facility] 08-21-2022 17:57-0400 Heart rate 74 /min [facility] 08-21-2022 17:57-0400 SaO2% (BldA) [Mass fraction] 98 % [facility] 08-21-2022 17:57-0400 Systolic blood pressure 134 mm[Hg] [facility] 10-17-2021 06:13-0400 Body height 165.1 cm [facility] Work Phone: 10-17-2021 06:13-0400 Body mass index (BMI) [Ratio] 20.9 kg/m2 [facility] Work Phone: 10-17-2021 06:13-0400 Body temperature 97 [degF] [facility] Work Phone: 10-17-2021 06:13-0400 Body weight 57.2 kg [facility] Work Phone: 10-17-2021 06:13-0400 Diastolic blood pressure 80 mm[Hg] [facility] Work Phone: 10-17-2021 06:13-0400 Heart rate 72 /min [facility] Work Phone: 10-17-2021 06:13-0400 Respiratory rate 18 /min [facility] Work Phone: 10-17-2021 06:13-0400 SaO2% (BldA) [Mass fraction] 98 % [facility] Work Phone: 10-17-2021 06:13-0400 Systolic blood pressure 138 mm[Hg] [facility] Work Phone: 08-30-2021 03:34-0400 Body height 165.1 cm [facility] Work Phone: 08-30-2021 03:34-0400 Body mass index (BMI) [Ratio] 20 kg/m2 [facility] Work Phone: 08-30-2021 03:34-0400 Body temperature 96.4 [degF] [facility] Work Phone: 08-30-2021 03:34-0400 Body weight 54.43 kg [facility] Work Phone: 08-30-2021 03:34-0400 Diastolic blood pressure 83 mm[Hg] [facility] Work Phone: 08-30-2021 03:34-0400 Heart rate 67 /min [facility] Work Phone: 08-30-2021 03:34-0400 Respiratory rate 18 /min [facility] Work Phone: 08-30-2021 03:34-0400 SaO2% (BldA) [Mass fraction] 99 % [facility] Work Phone: 08-30-2021 03:34-0400 Systolic blood pressure 151 mm[Hg] [facility] Work Phone: 12-13-2019 06:09-0400 Body Temperature 97.7 [degF] [facility] [place] [place] 12-13-2019 06:09-0400 BP Diastolic 63 mm[Hg] [facility] [place] [facility] [place] 12-13-2019 06:09-0400 BP Systolic 107 mm[Hg] [facility] [place] [facility] [place] 12-13-2019 06:09-0400 Pulse (Heart Rate) 53 /min [facility] [place] 12-13-2019 06:09-0400 Respiratory Rate 16 /min [facility] [place] 12-08-2019 18:37-0400 BMI (Body Mass Index) 17.81 kg/m2 [facility] [place] 12-08-2019 18:37-0400 Body weight 48.54 kg [facility] [place] , [place] 12-08-2019 18:37-0400 Height 165.1 cm [facility] [place] 12-08-2019 18:37-0400 Pulse Oximetry 97 % [facility] [place] 10-11-2019 00:03-0400 BMI (Body Mass Index) 24.13 kg/m2 [facility] [place] 10-11-2019 00:03-0400 Body Temperature 98.49 [degF] [facility] [place] 10-11-2019 00:03-0400 Body weight 65.77 kg [facility] [place] , [place] 10-11-2019 00:03-0400 BP Diastolic 65 mm[Hg] [facility] [place] 10-11-2019 00:03-0400 BP Systolic 122 mm[Hg] [facility] [place] 10-11-2019 00:03-0400 Height 165.1 cm [facility] , [place] 10-11-2019 00:03-0400 Pulse (Heart Rate) 102 /min [facility] [place] 10-11-2019 00:03-0400 Pulse Oximetry 97 % [facility] [place] 10-11-2019 00:03-0400 Respiratory Rate 20 /min [facility] [place] Encounters Encounter Date Encounter Type Care Provider Facility Start: 07-26-2023 End: 07-26-2023 Emergency department patient visit No Primary Care Physician Facility:[facility] Start: 06-06-2023 End: 06-07-2023 Emergency department patient visit SARA MATHEWS MD Facility:B Start: 06-06-2023 End: 06-07-2023 Emergency department patient visit SARA MATHEWS MD [facility] Start: 08-26-2022 End: 08-26-2022 [facility] Start: 08-21-2022 End: 08-21-2022 Emergency department patient visit [facility] Work Phone: Start: 10-17-2021 End: 10-17-2021 Emergency department patient visit [facility] Start: 08-30-2021 End: 08-30-2021 [facility] Start: 12-08-2019 [facility] [employer] Start: 12-08-2019 End: 12-13-2019 Evaluation and management of inpatient HUNTER N SANCHO [facility] Start: 10-11-2019 End: 10-11-2019 Emergency department patient visit [facility] Start: 10-10-2019 End: 10-11-2019 Emergency department patient visit [facility] Comment on above: Pain due to dental c mike (Primary Dx); Cellulitis of finger of right hand Start: 10-10-2019 [facility] encounter [facility] [employer] [place] Procedures Date Procedure Procedure Detail Performing Clinician Start: 12-13-2019 DISCHARGE PATIENT MUHAM MAD SANCHO Start: 12-12-2019 Drug assay valproic dipropylacetic acid total HUNTER MOMEN Start: 12-12-2019 Drug assay valproic dipropylacetic acid total Hunter N Momen Work Phone: Start: 12-09-2019 Hemoglobin glycosylated a1c HUNTER MOMEN Start: 12-09-2019 Lipid panel HUNTER M OMEN Start: 12-09-2019 Hemoglobin glycosylated a1c Karina Camila Dellick Work Phone: Start: 12-09-2019 Lipid panel Karina Jensen Del lick Work Phone: Start: 12-08-2019 DIET GENERAL KILEY ECHEVARRIA Start: 12-08-2019 FULL CODE KILEY ECHEVARRIA Start: 12-08-2019 NURSING COMMUNICATION Kajal KINGSLEY Start: 12-08-2019 VITAL SIGNS KILEY ECHEVARRIA Start: 12-08-2019 PATIENT STATUS (FROM ED OR OR/PROCEDURAL) KILEY KINGSLEY Start: 12-08-2019 Basic metabolic pane l calcium total KILEY KINGSLEY Start: 12-08-2019 Blood count complete automated KILEY KINGSLEY Start: 12-08-2019 COVID-19 KILEY ECHEVARRIA Start: 12-08-2019 Drug screen class list a KILEY KINGSLEY Start: 12-08-2019 Drug screen, qualitate/multi KILEY KINGSLEY Start: 12-08-2019 Basic metabolic pane l calcium total Perez Loredo Work Phone: Start: 12-08-2019 Blood count complete automated Perez Danen Work Phone: Start: 12-08-2019 COVID-19 Perez Ni ryan Work Phone: Start: 12-08-2019 Drug screen class list a Perez Loredo Work Phone: Start: 12-08-2019 Drug screen, qualitate/multi Perez Loredo Work Phone: Start: 10-11-2019 Radex hand minimum 3 views Start: 10-11-2019 Radex hand minimum 3 views Gail Singer Work Phone: None (qualifier value) SARA MATHEWS MD Plan of Treatment Date Care Activity Detail Author Start: 10-17-2019 Influenza vaccination Flu vaccine (#1) [place], [place] Start: 02-06-1999 DTaP/Tdap/Td vaccine (1 - Tdap) DTaP/Tdap/Td vaccine (1 - Tdap) [place] Start: 02-06-1995 HIV screening HIV screen [place], [place] Start: 02-06-1986 Pneumococcal 0-64 years Vaccine (1 of 1 - PPSV23) Pneumococcal 0-64 years Vaccine (1 of 1 - PPSV23) [place], [place] Start: 02-06-1981 Varicella vaccine (1 of 2 - 2-dose childhood series) Varicella vaccine (1 of 2 - 2-dose childhood series) [place], [place] Patient Education [facility] Work Phone: Patient referral [facility] Work Phone: Immunizations Immunization Date Immunization Notes Care Provider Fa renaty NEGATED: Highlighted row has not occurred!12-13-2019 influenza, injectable, quadrivalent, preservative free [place], [place] Payers Date Payer Category Payer Self-pay [id number] 2015 Medicaid [id number] 1980 Unknown [id number] [id number] Self-pay SELF PAY INSURANCE [id number] Unknown [id number] [id number] Unknown [id number] Unknown [id number] Social History Date Type Detail Facility Start: 10-10-2019 End: 12-08-2019 Tobacco smoking status NHIS Current every day smoker [place], [place] History of tobacco use Cigarette Smoker [place], [place] Start: 10-10-2019 End: 12-08-2019 Cigarettes smoked current (pack per day) - Reported [place], [place] Start: 10-10-2019 End: 12-08-2019 Tobacco use and exposure Never used [place], [place] Start: 10-10-2019 End: 12-08-2019 Alcohol intake Ex-drinker (finding) [facility] Y Sex Assigned At Not on file [facility] Exposure to SARS-CoV -2 (event) Not sure [facility] Start: 08-30-2021 End: 08-26-2022 Tobacco smoking status NHIS Unknown if ever smoked [facility] Start: 05-09-2019 Rare [facility] Start: 05-09-2019 None [facility] Start: 05-09-2019 Alone [facility] Start: 05-09-2019 Cigarettes;- [facility] Start: 1980 Sex Assigned At Male W [facility] Sex Assigned At Sex [facility] Functional Status Date Assessment Result Facility 06-07-2023 Functional Status Activity Caiochapo alcantara Independent [facility] 06-06-2023 Functional Status Ambulation in Sanchez, Ambulation in Room [facility] Mental Status Date Assessment Result Facility 06-07-2023 Mental Status Orientation Oriented x 4 [facility] 06-06-2023 [facility] Notes 08-26-2022 to 06-07-2023 Note Date & Type Note Facility 06-07-2023 Hospital Discharg e instructions Patient Education 06/06/2023 23:14:39 Dental Abscess with Facial Cellulitis Dental Abscess with Facial Cellulitis A dental abscess is an infection at the base of a tooth. It means a pocket of pus has formed at the tip of a tooth root in your jaw bone. If the infection isn t treated, it can appear as a swelling on the gum near the tooth. More serious infections spread to the face. This causes your face to swell (cellulitis). This is a very serious condition. Once the swelling begins, it can spread quickly. A dental abscess usually starts with a crack or cavity in a tooth. The pain is often made worse by drinking hot or cold beverages, or biting on hard foods. The pain may spread from the tooth to your ear or the area of your jaw on the same side. Home care Follow these tips when caring for yourself at home: Don't have hot and cold foods and drinks. Your tooth may be sensitive to changes in temperature. Don t chew on the side of the infected tooth. If your tooth is chipped or cracked, or if there is a large open cavity, put oil of cloves directly on the tooth to relieve pain. You can buy oil of cloves at drugstores. Some pharmacies carry an adrx-ska-nufyzqj toothache kit. This contains a paste that you can put on the exposed tooth to make it less sensitive. Put a cold pack on your jaw over the sore area to help reduce pain. You may use cuuv-kbk-rvekqrp medication to ease pain, unless another medicine was prescribed. If you have chronic liver or kidney disease, talk with your health care provider before using acetaminophen or ibuprofen. Also talk with your provider if you ve had a stomach ulcer or GI bleeding. An antibiotic will be prescribed. Take it exactly as directed. Don t miss any doses. Follow-up care Follow up with your dentist or an oral surgeon as advised. Severe cases of cellulitis must be checked again within 24 hours. Once an infection occurs in a tooth, it will continue to be a problem until the infection is drained. This is done through surgery or a root canal. Or you may need to have your tooth pulled. Call 911 Call 911 if any of these occur: Swelling spreads to the upper half of your face or neck You eyelids begin to swell shut Unusual drowsiness Headache or a stiff neck Weakness or fainting Difficulty swallowing or breathing When to seek medical advice Call your healthcare provider right away if any of these occur: Pain gets worse or spreads to your neck Fever of 100.4 F (38 C) or higher, or as directed by your healthcare provider [id number] [employer]. [address] [place] [address]. All rights reserved. This information is not intended as a substitute for professional medical care. Always follow your healthcare professional's instructions. Follow Up Care 06/06/2023 20:22:18 With:[facility] [address] [place] [address]. Tel: Ce Office Phone [phone] Address:Unknown When:2-4 days With:NONE PHYSICIAN Address:Unknown When:2-4 days With:Dental Referral List Address:Unknown When:2-4 days With:NADINE RAGSDALE Address: [address] [place] [address]- [phone] Business (1) When:2-4 days Comments:Oral surgeon in [facility] Zena Altamirano 06-07-2023 Note Discharge Instructions Thank you for allowing [facility] to assist you with your healthcare needs. The following is important discharge information regarding your hospital visit. Diagnosis from Today's Visit Cellulitis of face Dental infection Dental pain Swollen face What to Do Next Instructions from Your Care Team No qualifying data available. Post Acute Orders No qualifying data available. You Need to Schedule the Following Appointments Follow Up with [facility]. [address] [place] [address]. Tel: [employer] Office Phone [phone] When Within 2-4 days Follow Up with NONE PHYSICIAN When Within 2-4 days Follow Up with Dental Referral List When Within 2-4 days Follow Up with NADINE RAGSDALE When Within 2-4 days Why: Oral surgeon in [place] Where: [address] [place] [address]- [phone] Business (1) Allergies Child ASA Medications Please ask your primary doctor or pharmacist before taking any other medication not listed, including over the counter drugs, herbal medications, vitamins and or supplements as they may interact with your home medications. What How Much When Why Instructions Last Dose New amoxicillin-clavulanate (amoxicillin-clavulanate 875 mg-125 mg oral tablet) 1 tab(s) by mouth Every 12 hours Duration: 14 Days Pickup at [facility] New ibuprofen (ibuprofen 600 mg oral tablet) 1 tab(s) by mouth Every 6 hours as needed for for swelling Duration: 10 Days Take with food or milk. Pickup at [facility] Changed acetaminophen-HYDROcodone ([place] 325- 5 mg oral tablet) 1 tab(s) by mouth Every 6 hours Changed acetaminophen-hydrocodone ([place] 325- 5 mg oral tablet) 1 tab(s) by mouth Every 6 hours as needed for for pain Dental infection Duration: 3 Days Pickup at [facility] Unchanged famotidine (Pepcid) Pharmacy Information [facility]: [address] [place], [place] [phone] Please take this list to your next doctor s visit. Bring all medications you take, including over the counter medications, herbals and other supplements with you to your doctor s visit. Patients and families are reminded to discard old lists and to update any records with all medication providers or retail pharmacies. Education Materials Dental Abscess with Facial Cellulitis A dental abscess is an infection at the base of a tooth. It means a pocket of pus has formed at the tip of a tooth root in your jaw bone. If the infection isn t treated, it can appear as a swelling on the gum near the tooth. More serious infections spread to the face. This causes your face to swell (cellulitis). This is a very serious condition. Once the swelling begins, it can spread quickly. A dental abscess usually starts with a crack or cavity in a tooth. The pain is often made worse by drinking hot or cold beverages, or biting on hard foods. The pain may spread from the tooth to your ear or the area of your jaw on the same side. Home care Follow these tips when caring for yourself at home: Don't have hot and cold foods and drinks. Your tooth may be sensitive to changes in temperature. Don t chew on the side of the infected tooth. If your tooth is chipped or cracked, or if there is a large open cavity, put oil of cloves directly on the tooth to relieve pain. You can buy oil of cloves at drugstores. Some pharmacies carry an qvbu-rav-trijfcx toothache kit. This contains a paste that you can put on the exposed tooth to make it less sensitive. Put a cold pack on your jaw over the sore area to help reduce pain. You may use urfp-grj-uuzjhce medication to ease pain, unless another medicine was prescribed. If you have chronic liver or kidney disease, talk with your health care provider before using acetaminophen or ibuprofen. Also talk with your provider if you ve had a stomach ulcer or GI bleeding. An antibiotic will be prescribed. Take it exactly as directed. Don t miss any doses. Follow-up care Follow up with your dentist or an oral surgeon as advised. Severe cases of cellulitis must be checked again within 24 hours. Once an infection occurs in a tooth, it will continue to be a problem until the infection is drained. This is done through surgery or a root canal. Or you may need to have your tooth pulled. Call 911 Call 911 if any of these occur: Swelling spreads to the upper half of your face or neck You eyelids begin to swell shut Unusual drowsiness Headache or a stiff neck Weakness or fainting Difficulty swallowing or breathing When to seek medical advice Call your healthcare provider right away if any of these occur: Pain gets worse or spreads to your neck Fever of 100.4 F (38 C) or higher, or as directed by your healthcare provider [phone] [employer]. [address] [place] [address], [place] [address]. All rights reserved. This information is not intended as a substitute for professional medical care. Always follow your healthcare professional's instructions. Additional Information VACCINATE! IT SAVES LIVES! Members of the community who have not yet received the COVID-19 vaccine and would like to receive it can visit one of [facility] vaccine clinics. There are many vaccine clinic locations within the [facility]. For locations and available times, please visit [email or web address]. gov/. It is important to note that some COVID mobile vaccine clinics are held outdoors and may be canceled in rainy or stormy conditions. To learn more about pediatric vaccinations (ages 5-11), we invite you to visit the [facility] webpage. https://www.[facility].org/p ages/4830-Ttgvj-Icklqyamnnd-Freq jmvjpz-Hphpf-Tkujaxjnz.html To learn more about the COVID-19 vaccine, we invite you to visit the CDC website for a list of frequently asked questions. https://www.cdc.gov/coronavirus/ 2019-ncov/vaccines/faq.html [facility] Patient Portal Access Instructions: Stay connected with your healthcare team and access your personal medical information anytime with the [facility] Patient Portal. If you would like a full copy of your medical records please contact the [facility] Medical Records Department Wednesday through Wednesday between 8a.m. and 4:30p.m. Please follow the directions below to access the portal: 1.Access the email account you provided upon registration to the [facility].2.Look for an invitation email from [facility].3.Open the email and access the invitation link: Accept Invitation to [facility]4.Fill in the required severino to create your account. Sign into [email or web address] with your username and password that you created in the above steps to stay up to date. You can then view a summary of results, a summary of your visits, and the ability to download your summaries to your computer or send the information securely to a physician. Remember that your healthcare information is confidential, so carefully consider who you will allow to register on the [facility] Patient Portal for access to your information. You can also access the [facility] Patient Portal on the [employer] cary. Simply click on Health Records under Health Data and then click on the [employer] logo. HOW TO SAFELY DISPOSE OF PRESCRIPTION MEDICATIONS Please use one of the following methods to safely dispose of your unused medications. 1.Use a drug disposal kit: the drug disposal pouch allows you to safely discard your old and unused drugs. Ask your nurse to give you one when you are discharged.2.Visit a local take-back location: Many local pharmacies and police departments have programs that collect old and unwanted prescription drugs. Call your local pharmacy or go to http://INAPPIN.ScalIT/8L2Yy1n to find one close to you.3.Make use of household items: Use cat litter or old coffee grounds to dispose medications if other options are not available. Mix your drugs with these household products, seal them in an airtight container and throw it into the garbage. Call [facility]: [phone] to be sure your drugs can be disposed of in this way. Some medicines may require a different approach.4.Never flush your medications down the toilet. IF YOU HAVE BEEN PRESCRIBED AN OPIOIDS FOR PAIN If you have been prescribed an opioid (such as hydrocodone, oxycodone or morphine), it is critical to understand the possible side effects and risks of opioid pain medications. Even when taken as directed, opioids can have several side effects including: Tolerance, meaning you might need to take more of a medication for the same pain relief. Nausea, vomiting and/or constipation. Sleepiness, dizziness, dry mouth, confusion, depression or itching. Physical dependence, meaning you have withdrawal symptoms when a medication is stopped ? this can develop within a few days. KNOW YOUR RESPONSIBILITIES It is important to know exactly how much and how often to take the opioid pain medications you are prescribed. Never take opioids in higher amounts or more often than prescribed. Do not combine opioids with alcohol or other drugs that cause drowsiness, such as benzodiazepines, also known as benzos, including diazepam and alprazolam, muscle relaxants or sleep aids. Never sell or share prescription opioids. This is illegal. Store opioids in a secure place and out of reach of others (including children, family, friends and visitors). The last page(s) of this document has been signed and retained as a CHART COPY Signatures Patient Education Materials Dental Abscess with Facial Cellulitis Medication Leaflets My discharge plan and instructions have been reviewed and explained to me and I,DANILO OQUENDO understand my current condition and have read and understand these discharge instructions. I have received a written copy of the plan/instructions. If I have questions, I am aware that I should contact my doctor. 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 The following is important discharge information regarding your hospital visit. Diagnosis from Today's Visit Cellulitis of face Dental infection What to Do Next Instructions from Your Care Team No qualifying data available. Post Acute Orders No qualifying data available. You Need to Schedule the Following Appointments Follow Up with [facility]. [address] [place] [address]. Tel: [facility] Phone [phone] When Within 2-4 days Follow Up with NONE PHYSICIAN When Within 2-4 days Follow Up with Dental Referral List When Within 2-4 days Follow Up with NADINE RAGSDALE When Within 2-4 days Why: Oral surgeon in [place] Where: [address] [place] [address]- [phone] Business (1) Allergies Child ASA Medications Please ask your primary doctor or pharmacist before taking any other medication not listed, including over the counter drugs, herbal medications, vitamins and or supplements as they may interact with your home medications. What How Much When Why Instructions Last Dose New amoxicillin-clavulanate (amoxicillin-clavulanate 875 mg-125 mg oral tablet) 1 tab(s) by mouth Every 12 hours Duration: 14 Days Pickup at [facility] Pharmacy Information [facility]: [address] [place] [phone] Please take this list to your next doctor s visit. Bring all medications you take, including over the counter medications, herbals and other supplements with you to your doctor s visit. Patients and families are reminded to discard old lists and to update any records with all medication providers or retail pharmacies. Education Materials Dental Abscess with Facial Cellulitis A dental abscess is an infection at the base of a tooth. It means a pocket of pus has formed at the tip of a tooth root in your jaw bone. If the infection isn t treated, it can appear as a swelling on the gum near the tooth. More serious infections spread to the face. This causes your face to swell (cellulitis). This is a very serious condition. Once the swelling begins, it can spread quickly. A dental abscess usually starts with a crack or cavity in a tooth. The pain is often made worse by drinking hot or cold beverages, or biting on hard foods. The pain may spread from the tooth to your ear or the area of your jaw on the same side. Home care Follow these tips when caring for yourself at home: Don't have hot and cold foods and drinks. Your tooth may be sensitive to changes in temperature. Don t chew on the side of the infected tooth. If your tooth is chipped or cracked, or if there is a large open cavity, put oil of cloves directly on the tooth to relieve pain. You can buy oil of cloves at [employer]. Some pharmacies carry an mujg-egf-yuwfchd toothache kit. This contains a paste that you can put on the exposed tooth to make it less sensitive. Put a cold pack on your jaw over the sore area to help reduce pain. You may use fvqn-wty-xpcvmqb medication to ease pain, unless another medicine was prescribed. If you have chronic liver or kidney disease, talk with your health care provider before using acetaminophen or ibuprofen. Also talk with your provider if you ve had a stomach ulcer or GI bleeding. An antibiotic will be prescribed. Take it exactly as directed. Don t miss any doses. Follow-up care Follow up with your dentist or an oral surgeon as advised. Severe cases of cellulitis must be checked again within 24 hours. Once an infection occurs in a tooth, it will continue to be a problem until the infection is drained. This is done through surgery or a root canal. Or you may need to have your tooth pulled. Call 911 Call 911 if any of these occur: Swelling spreads to the upper half of your face or neck You eyelids begin to swell shut Unusual drowsiness Headache or a stiff neck Weakness or fainting Difficulty swallowing or breathing When to seek medical advice Call your healthcare provider right away if any of these occur: Pain gets worse or spreads to your neck Fever of 100.4 F (38 C) or higher, or as directed by your healthcare provider [id number] [employer]. [address] [place] [address]. All rights reserved. This information is not intended as a substitute for professional medical care. Always follow your healthcare professional's instructions. Additional Information VACCINATE! IT SAVES LIVES! Members of the community who have not yet received the COVID-19 vaccine and would like to receive it can visit one of [facility] vaccine clinics. There are many vaccine clinic locations within the [facility]. For locations and available times, please visit [email or web address] [email or web address] It is important to note that some COVID mobile vaccine clinics are held outdoors and may be canceled in rainy or stormy conditions. To learn more about pediatric vaccinations (ages 5-11), we invite you to visit the [facility] webpage. https://www.[facility].org/p ages/1454-Bucrh-Gfnozwtywdu-Freq yabdxo-Uypvw-Gqnflpvrm.html To learn more about the COVID-19 vaccine, we invite you to visit the CDC website for a list of frequently asked questions. https://www.cdc.gov/coronavirus/ 2019-ncov/vaccines/faq.html [facility] Patient Portal Access Instructions: Stay connected with your healthcare team and access your personal medical information anytime with the [facility] Patient Portal. If you would like a full copy of your medical records please contact the [facility] Medical Records Department Wednesday through Wednesday between 8a.m. and 4:30p.m. Please follow the directions below to access the portal: 1.Access the email account you provided upon registration to the [facility].2.Look for an invitation email from [facility].3.Open the email and access the invitation link: Accept Invitation to [facility].Fill in the required severino to create your account. Sign into [email or web address] with your username and password that you created in the above steps to stay up to date. You can then view a summary of results, a summary of your visits, and the ability to download your summaries to your computer or send the information securely to a physician. Remember that your healthcare information is confidential, so carefully consider who you will allow to register on the [facility] Patient Portal for access to your information. You can also access the [facility] Patient Portal on the [employer] cary. Simply click on Health Records under Health Data and then click on the [facility] logo. HOW TO SAFELY DISPOSE OF PRESCRIPTION MEDICATIONS Please use one of the following methods to safely dispose of your unused medications. 1.Use a drug disposal kit: the drug disposal pouch allows you to safely discard your old and unused drugs. Ask your nurse to give you one when you are discharged.2.Visit a local take-back location: Many local pharmacies and police departments have programs that collect old and unwanted prescription drugs. Call your local pharmacy or go to http://bit.ScalIT/3V0Js6z to find one close to you.3.Make use of household items: Use cat litter or old coffee grounds to dispose medications if other options are not available. Mix your drugs with these household products, seal them in an airtight container and throw it into the garbage. Call [facility]: [phone] to be sure your drugs can be disposed of in this way. Some medicines may require a different approach.4.Never flush your medications down the toilet. IF YOU HAVE BEEN PRESCRIBED AN OPIOIDS FOR PAIN If you have been prescribed an opioid (such as hydrocodone, oxycodone or morphine), it is critical to understand the possible side effects and risks of opioid pain medications. Even when taken as directed, opioids can have several side effects including: Tolerance, meaning you might need to take more of a medication for the same pain relief. Nausea, vomiting and/or constipation. Sleepiness, dizziness, dry mouth, confusion, depression or itching. Physical dependence, meaning you have withdrawal symptoms when a medication is stopped ? this can develop within a few days. KNOW YOUR RESPONSIBILITIES It is important to know exactly how much and how often to take the opioid pain medications you are prescribed. Never take opioids in higher amounts or more often than prescribed. Do not combine opioids with alcohol or other drugs that cause drowsiness, such as benzodiazepines, also known as benzos, including diazepam and alprazolam, muscle relaxants or sleep aids. Never sell or share prescription opioids. This is illegal. Store opioids in a secure place and out of reach of others (including children, family, friends and visitors). The last page(s) of this document has been signed and retained as a CHART COPY Signatures Patient Education Materials Dental Abscess with Facial Cellulitis Medication Leaflets My discharge plan and instructions have been reviewed and explained to me and I,DANILO OQUENDO understand my current condition and have read and understand these discharge instructions. I have received a written copy of the plan/instructions. If I have questions, I am aware that I should contact my doctor. 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 Multiplanar reformatted images are provided for review. Automated exposure control, iterative reconstruction, and/or weight based adjustment of the mA/kV was utilized to reduce the radiation dose to as low as reasonably achievable. COMPARISON: None. HISTORY: ORDERING SYSTEM PROVIDED HISTORY: Reason for Exam: left sided facial pain and swelling x 5 days L maxillary swelling, suspect dental abscess FINDINGS: PHARYNX/LARYNX: The palatine tonsils are normal in appearance. The tongue is normal in appearance. The valleculae, epiglottis, aryepiglottic folds and pyriform sinuses appear unremarkable. No mass or abscess is seen. SALIVARY GLANDS: The parotid and submandibular glands appear unremarkable. LYMPH NODES: No cervical lymphadenopathy is seen. SOFT TISSUES: Overlying the infection described below is an area of enhancement with low soft tissue density centrally in the left cheek consistent with phlegmon. There is adjacent soft tissue stranding consistent with cellulitis. BRAIN/ORBITS/SINUSES: The visualized portion of the intracranial contents appear unremarkable. The visualized portion of the orbits, paranasal sinuses and mastoid air cells demonstrate no acute abnormality. BONES: There are numerous dental caries and a right mandibular periapical lucency as well as a left maxillary periapical lucency. Associated with this latter is overlying bone erosion and a 8 mm x 8 mm subperiosteal phlegmon, with peripheral enhancement but soft tissue density right than liquid internally. IMPRESSION: Inflammatory changes of the left facial soft tissues appear secondary to a left maxillary periapical lucency which has eroded through the bone. There is an associated 8 mm subperiosteal phlegmon without drainable fluid component. Phlegmon is also seen in the overlying cheek soft tissues with no drainable fluid component. Regional soft tissue edema is likely reflective of associated cellulitis. Interpreted by: Homar Rockwell Preliminary Report By: Homar Rockwell Electronically signed By Homar Rockwell Dictated Date: 06/06/2023 10:16:42 PM Prelim Date: 06/06/2023 10:24:31 PM Sign Date: 06/06/2023 10:24:31 PM Ordering Provider: [facility] 08-26-2022 Discharge summary Note Date/Time August 26, 2022 6:59pm [facility] Medical Records Department [address] [place] [address] Emergency Department Summary 08/26/22 MR#: [id number] Acct: [id number] Name: DANILO OQUENDO Jr. Rep #:[id number] : 1980 42 From: [address] PCP: Care Physician,No Primary Status :REG ER Location: ED HPI History of Present Illness Chief Complaint: Dental PFSH PFSH Home Medications penicillin V potassium 500 mg tablet 500 mg PO 4X/DAY #40 tabs 10/17/21 [Rx Last Taken Unknown] penicillin V potassium 250 mg tablet 500 mg (2 x 250 mg) PO 4X/DAY #40 tabs 08/21/22 [Rx Last Taken Unknown] Allergy/AdvReac Type Severity Reaction Status Date / Time aspirin AdvReac Upset Verified 08/26/22 18:24 Stomach ibuprofen AdvReac Upset Verified 08/26/22 18:24 Stomach naproxen [From Naprosyn] AdvReac Upset Verified 08/26/22 18:24 Stomach Surgical History no surgical history Social History Smoking Status: Current every day smoker tobacco type: cigarettes EXAM Physical Exam Const Vital Signs: 08/26/22 18:23 Temperature 97 F L Temperature Source Temporal Pulse Rate 77 Respiratory Rate 18 Blood Pressure 123/56 H Blood Pressure Mean 78 Pulse Ox 99 Oxygen Delivery Method Room Air MDM MDM MDM Narrative Medical decision making narrative: HISTORY OF PRESENT ILLNESS: 42-year-old male here for dental pain. States he is currently on penicillin. He further states that left sided lower jaw swelling. He is concerned he may have an abscess. Denies any fever or vomiting. Denies any submandibular edema neck stiffness or difficulty swallowing. Denies any drooling or difficulty opening his mouth. REVIEW OF SYSTEMS: Pertinent positives: Pertinent negatives: PHYSICAL EXAM: Nursing triage notes reviewed, Vital signs reviewed Constitutional: please see mdm HENT: MMM, no evidence of dental abscess, no submandibular edema or induration, no tonsillar exudates or erythema, uvula midline, patient was controlling secretions, no drooling, no trimus, no dysphonia Eyes: Pupils equal round and reactive to light, Extraocular muscles intact Neck: No stridor, no JVD, full neck ROM Lungs: Clear to auscultation, No wheezing or rales. No increased work of breathing, no conversational dyspnea, no accessory muscle use, no nasal flaring. No respiratory distress noted Heart: Regular rate and rhythm, No murmurs, No rubs and No gallops, 2+ distal pulses (radial, femoral, posterior tibial) in all extremities MEDICAL DECISION MAKING: Chief Complaint: Dental pain External records reviewed: Seen on 08/21/2022 noted at time of left-sided facial swelling. Diagnosed with dental abscess at that time. MDM Narrative: The patient was hemodynamically stable, afebrile, nontoxic-appearing. 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 1% lidocaine was injected abscess was drained with a 22-gauge needle with approximately 1 cc of yellow purulent drainage expectorated. Patient was given Augmentin for further antimicrobial effect. He was given instructions to take Tylenol and ibuprofen for pain and fever control. He was instructed to follow-up with dentistry at the next available appointment. Procedure: Incision and Drainage The procedure was performed by myself. Location: Left lower jaw Risks and benefits: Risks, benefits, and alternatives were discussed. Questions were sought and answered, and verbal consent provided for the procedure. Anesthesia: 1% lidocaine Procedure Description: 22-gauge needle was inserted into the area of fluctuance with return of purulent fluid. Patient tolerated the procedure well. The patient tolerated the procedure well without complications. Shared decision making: I will have a discussion with the patient and or visitors regarding risk/benefits of further testing or admission. They will be made aware of of the risk/benefits inherent in this decision they will be given the opportunity to voice understanding. Consults: None Discharge Plan Triage Chief Complaint: Dental ED Provider: Lane Mora Dx/Rx/DC Orders Prescriptions: No Action penicillin V potassium 500 mg tablet 500 mg PO 4X/DAY Qty: 40 0RF penicillin V potassium 250 mg tablet 500 mg PO 4X/DAY Qty: 40 0RF Primary Care Provider: Care Physician,No Primary Referrals: Care Physician,No Primary [Primary Care Provider] - What to do if you have Problems For any increased pain, shortness of breath, bleeding, nausea or vomiting, chestpain, or any unexpected problems, contact your Primary Care Provider. Call [facility] ([phone]) or report to the closest Emergency Room. Call 911 if necessary. 08/26/221947 <Electronically signed by Lane Mora DO> Cosigner Signature (if applicable): CC: No Primary Care Physician ~ Signed ADDENDUM by Dr. Lane Mora DO on 08/26/22 at 1948 HEENT exam: Strike no evidence of dental abscess and replace this with there is evidence of dental abscess in left lower jaw. 08/26/221947<Electronically signed by Lane Mora DO> Cosigner Signature (if applicable): cc: No Primary Care Physician ~* Signed [facility] Work Phone: Evaluation + Plan note No data available for this section [facility] Evaluation noteNo assessment information available [facility] Work Phone: Hospital Discharge instructions Additional [facility]ructions [facility] Hospital Discharge instructions Additional Instructions Dental list provided. Please follow-up with a dentist within the next couple weeks.[facility] Work Phone: Hospital Discharge instructions Additional Instructions Thank you for trusting us with your care today! Please take Tylenol (2 pills, 650 mg), ibuprofen (2 pills, 400 mg) every 6 hours as needed for pain and fever control. Please take antibiotics as prescribed Please return to the emergency department if your symptoms change or worsen. Specifically develop swelling underneath your jaw, difficulty swallowing, difficulty opening her jaw, neck stiffness, vomiting or if you cannot take your medicine by mouth. Please follow with your primary care physician for further outpatient evaluation and management.[facility] Work Phone: Summary note* CAITLYN Goodson: PERFORM Event Display: Patient Summary Documents Authored Date: [id number] [facility] Summary Purpose Family History No Family History Records FoundNo Family History Records Found No data available for this section No Family History Records FoundNo Family History Records Found Advance Directives No Advanced Directives Records FoundLatest Code Status on File Code Status Date Activated Date Inactivated Comments Full Code 12/08/2019 5:53 PM Advance Directive Response Recorded Date/ Time Living Will No August 30, 2021 3:37am Power of Puppet Engineer No August 30 3:37am Advance Directive Response Recorded Date/ Time Living Will No October 17 6:15am Power of Puppet Engineer No October 17, 2021 6:15am Advance Directive Response Recorded Date/ Time Living Will No August 21, 2022 6 :13pm Power of Puppet Engineer No August 21, 2022 6:13pm Advance Directive Response Recorded Date/ Time Living Will No August 26, 2022 6:41pm Power of Puppet Engineer No August 26 6:41pm Discharge Instructions * Attachments The following attachments cannot be sent through Care Everywhere. * Tooth Decay (Montserratian) * Cellulitis ([place]) documented in this encounter Assessments Diagnosis Pain due to dental caries Cellulitis of finger of right hand Cellulitis and abscess of finger, unspecified Chief Complaint and Reason for Visit Chief Complaint DENTAL PAIN Chief Complaint DENTAL PAIN dental Chief Complaint DENTAL Chief Complaint DENTAL DENTAL Additional Source Comments (unrecognized sect ion and content) No Status Records FoundNo Status Records FoundNo Status Records FoundNo Status Records Found INFORMATION SOURCE (unrecogn ized section and content) DATE CREATED AUTHOR 10/17/2019 [facility] DATE CREATED AUTHOR AUTHOR'S ORGANIZ ATION 12/14/2019 [facility] DATE CREATED AUTHOR AUTHOR'S ORGANIZ ATION 06/22/2023 [facility] ([place] DATE CREATED AUTHOR AUTHOR'S ORGANIZ ATION 08/07/2023 [facility] Reason for Visit (unrecogniz ed section and content) Reason Comments Finger Pain right 2nd didgit Goals (unrecognized section and content) Goals may be documented in a n alternate sectionGoals may be documented in an alternate sectionGoals may be documented in an alternate sectionGoals may be documented in an alternate section No data available for this section Care Teams (unrecognized sec tion and content) Team Status: Active Member Role Status Dates No Primary Care Physician Family Provider Active No Primary Care Physician Primary Care Provider Active Team Status: Inactive Member Role Status Dates No Primary Care Physician Primary Care Provider Active Dr. Evelyn Wiley MD Emergency Provider Active Team Status: Inactive Member Role Status Dates No Primary Care Physician Primary Care Provider Active Dr. Evelyn Wiley MD Attending Provider, Emergency Provider Active Team Status: Inactive Member Role Status Dates No Primary Care Physician Primary Care Provider Active Dr. Lane Mora , DO Emergency Provider Active FOR RECORDS PERTAINING TO PATIENTS WHO ARE OR HAVE BEEN ENROLLED IN A CHEMICAL DEPENDENCY/SUBSTANCEABUSE PROGRAM, SOME INFORMATION MAY BE OMITTED. This clinical summary was aggregated from multiple sources. Caution should be exercised in using it in the provision of clinical care. This summary normalizes information from multiple sources, and as a consequence, information in this document may materially change the coding, format and clinical context of patient data. In addition, data may be omitted in some cases. CLINICAL DECISIONS SHOULD BE BASED ON THE PRIMARY CLINICAL RECORDS. [employer] [facility]. provides no warranty or guarantee of the accuracy or completeness of information in this document.
[2024-08-12] MEDS: Amox/Clavulanate 875 MG Tablet PO (00:50)
== END 2024-08-12 00:53 | disposition home or self-care (01) ==
PROVIDERS: Emergency Provider Emergency Medicine; Visit Provider Emergency Medicine
DX: K03.2 Erosion of teeth (principal); F17.210 Nicotine dependence, cigarettes, uncomplicated
CPT/HCPCS: 99282